=== PATIENT | female | born 1945 | race Caucasian/White ===

== ENCOUNTER 2017-09-03 11:13 | Inpatient (IN) | payer OTHER, MEDICARE ==
[~2017-09-03] VITALS: Ht 165.1 cm; Wt 57.2 kg
[~2017-09-03 11:13] MED LIST: ALPR2TAB3 PO; AMLO5TAB2 PO; CENTTAB PO; CLON0.1T PO; DOXY100C PO; FLUT50SP EACH NARE; FURO40TA PO; GABA400C5 PO; HYDR-2374 PO; LABE200T2 PO; LAMI200T PO; LEVO150T7 PO; MAGN65TA PO; PAXI20TA PO; POTA10CA PO; SAW500CA7 PO; WALKER WHEELS/F1 MIS
[2017-09-03 11:15] VITALS: BP 238/115; PULSE 96; RESP 16; TEMP 98.9; O2SAT 98
[2017-09-03 12:50] LABS: HEMATOCRIT 43.2 % (35.0-46.0); HEMOGLOBIN 14.7 GM/DL (11.6-15.3); MEAN CELL VOLUME 95.4 FL (80.0-100.0); MEAN CORPUSCULAR HEMOGLOBIN 32.5 PG (27.0-34.0); MEAN PLATELET VOLUME 10.7 FL (7.0-11.0); PLATELET COUNT 274 TH/MM3 (150-450); RED BLOOD COUNT 4.53 MIL/MM3 (4.00-5.30); RED CELL DISTRIBUTION WIDTH 12.3 % (11.6-17.2); WHITE BLOOD COUNT 12.2 TH/MM3 (4.0-11.0)
[2017-09-03 12:59] LABS: INTERNATIONAL NORMALIZED RATIO 1.1 RATIO; PROTHROMBIN TIME - PATIENT 11.1 SEC (9.8-11.6)
[2017-09-03 13:27] LABS: BANDS 2 % (0-6); BASOPHILS 2 % (0-2); LYMPHOCYTES 7 % (9-44); MONOCYTES 4 % (0-8); NEUTROPHIL # MANUAL DIFF 10.4 TH/MM3 (1.8-7.7); POLYS (SEG NEUTROPHILS) 83 % (16-70)
[2017-09-03 14:18] LABS: ALBUMIN 3.9 GM/DL (3.4-5.0); ALKALINE PHOSPHATASE 93 U/L (45-117); ALT (GPT) 23 U/L (10-53); AST (GOT) 20 U/L (15-37); BICARBONATE 22.1 MEQ/L (21.0-32.0); BLOOD UREA NITROGEN 22 MG/DL (7-18); CALCIUM 9.5 MG/DL (8.5-10.1); CHLORIDE 105 MEQ/L (98-107); CREATININE 0.92 MG/DL (0.50-1.00); GLOMERULAR FILTRATION RATE 60 ML/MIN (>89); GLUCOSE,RANDOM 102 MG/DL (74-106); SODIUM (NA) 139 MEQ/L (136-145); TOTAL BILIRUBIN ADULT 0.8 MG/DL (0.2-1.0); TOTAL PROTEIN 8.1 GM/DL (6.4-8.2)
[2017-09-03 14:32] VITALS: BP 196/110; PULSE 109; RESP 15; O2SAT 96
--- NOTE | 2017-09-03 14:34 | PD ---
HPI Chief Complaint: Medical Clearance Time Seen by Provider: 14:06 Travel History International Travel<30 days: No Contact w/Intl Traveler<30days: No Traveled to known affect area: No History of Present Illness HPI The patient was seen and examined in the presence of the nurse. This patient is brought in by her . For the last 5 days she's been feeling depressed. She's not been getting out of bed. She's not been eating. She's not been taking her medications. She denies feeling suicidal but admits to depression. He took her to [facility] emergency room yesterday where they did some tests that turned out normal. He was discharged and went home and saw the primary physician today. He is referred her to psychiatry and neurology and GI because she reported swallowing issues. The didn't want to wait for those referrals so he brought her here. Symptoms severity is moderate. No alleviating factors. No exacerbating factors. Denies any acute muscle group weakness. She complains of some generalized weakness. She is able to swallow but just doesn't feel like eating. She has no appetite. PFSH Past Medical History Anemia: Yes Arthritis: Yes Asthma: No Autoimmune Disease: No Blood Disorders: No Bipolar Disorder: Yes Anxiety: Yes Depression: Yes Heart Rhythm Problems: No Cancer: No Cardiovascular Problems: Yes High Cholesterol: No Chemotherapy: No Chest Pain: No Congestive Heart Failure: No COPD: No Cerebrovascular Accident: Yes (2011 & 2013) Diabetes: No Diminished Hearing: No Endocrine: Yes (HYPOTHYROID) Gastrointestinal Disorders: Yes (Constipation) GERD: Yes Genitourinary: Yes (BLADDER INCONTINENCE) Headaches: Yes Hiatal Hernia: No Hypertension: Yes Immune Disorder: No Kidney Stones: No Musculoskeletal: Yes (ARTHRITIS (SPINE, ARMS, KNEES)) Neurologic: Yes (MIGRAINES) Psychiatric: Yes ( PANIC D/O, PSDD, BIPOLAR) Reproductive: Yes (PROLAPSED UTERUS) Immunizations Current: Yes Migraines: Yes Pneumonia: Yes Radiation Therapy: No Renal Failure: No Seizures: Yes Sickle Cell Disease: No Sleep Apnea: No Thyroid Disease: Yes (HYPO) Ulcer: No Menopausal: Yes : 2 Para: 2 Past Surgical History Abdominal Surgery: Yes Body Medical Devices: RIGHT SHOULDER REPLACEMENT Ear Surgery: No Endocrine Surgery: No Eye Surgery: No Genitourinary Surgery: No Gynecologic Surgery: Yes Hysterectomy: Yes Insulin Pump: No Joint Replacement: Yes (RIGHT SHOULDER X 3) Neurologic Surgery: Yes (STROKE 2010) Oral Surgery: Yes (18 TEETH PULLED AND PLATE INSERT) Pacemaker: No Tonsillectomy: Yes Social History Alcohol Use: No Tobacco Use: No Substance Use: No Allergies-Medications (Allergen,Severity, Reaction): Coded Allergies: acetaminophen (Unverified Allergy, Severe, 04/02/17) aspirin (Unverified Allergy, Severe, 04/02/17) butorphanol (Unverified Allergy, Severe, 04/02/17) ciprofloxacin (Unverified Allergy, Severe, 04/02/17) erythromycin base (Unverified Allergy, Severe, 04/02/17) ferrous fumarate (Unverified Allergy, Severe, 04/02/17) ferrous sulfate (Unverified Allergy, Severe, 04/02/17) ferumoxytol (Unverified Allergy, Severe, 04/02/17) iron (Unverified Allergy, Severe, 04/02/17) levofloxacin (Unverified Allergy, Severe, 04/02/17) metoprolol (Unverified Allergy, Severe, 04/02/17) multivitamin infusion, adult no.4 with vitamin K (Unverified Allergy, Severe, 04/02/17) multivitamin with iron,other minerals (Unverified Allergy, Severe, 04/02/17 ) omeprazole (Unverified Allergy, Severe, 04/02/17) oxycodone (Unverified Allergy, Severe, 04/02/17) pentazocine (Unverified Allergy, Severe, 04/02/17) celecoxib (Unverified Allergy, Intermediate, ITCH, N&V, 04/02/17) amcinonide (Unverified Allergy, Unknown, 04/02/17) beclomethasone (Unverified Allergy, Unknown, 04/02/17) betamethasone (Unverified Allergy, Unknown, 04/02/17) buspirone (Unverified Allergy, Unknown, 04/02/17) caffeine (Unverified Allergy, Unknown, 04/02/17) desoximetasone (Unverified Allergy, Unknown, 04/02/17) dexamethasone (Unverified Allergy, Unknown, 04/02/17) diazepam (Unverified Allergy, Unknown, 04/02/17) divalproex sodium (Unverified Allergy, Unknown, 04/02/17) duloxetine (Unverified Allergy, Unknown, 04/02/17) escitalopram (Unverified Allergy, Unknown, 04/02/17) fludrocortisone (Unverified Allergy, Unknown, 04/02/17) flunisolide (Unverified Allergy, Unknown, 04/02/17) fluocinolone acetonide (Unverified Allergy, Unknown, 04/02/17) fluocinonide (Unverified Allergy, Unknown, 04/02/17) fluorometholone (Unverified Allergy, Unknown, 04/02/17) flurandrenolide (Unverified Allergy, Unknown, 04/02/17) fluticasone (Unverified Allergy, Unknown, 04/02/17) fluticasone furoate (Unverified Allergy, Unknown, 04/02/17) hydrocortisone (Unverified Allergy, Unknown, 04/02/17) methylprednisolone (Unverified Allergy, Unknown, 04/02/17) mometasone furoate (Unverified Allergy, Unknown, 04/02/17) naproxen (Unverified Allergy, Unknown, 04/02/17) ofloxacin (Unverified Allergy, Unknown, 04/02/17) prednisolone (Unverified Allergy, Unknown, 04/02/17) prednisone (Unverified Allergy, Unknown, 04/02/17) prochlorperazine (Unverified Allergy, Unknown, 04/02/17) triamcinolone (Unverified Allergy, Unknown, 04/02/17) *MDRO Multi-Drug Resistant Organism (Verified Adverse Reaction, Unknown, 07/03/16) MRSA screen positive 08/09/2015 Uncoded Allergies: Arthrotec (Allergy, Unknown, 04/09/13) Codeine Phosphate (Allergy, Unknown, 04/09/13) NSAIDS (Allergy, Unknown, 04/09/13) Reported Meds & Prescriptions Reported Meds & Active Scripts Active Reported Primidone 50 Mg Tab 50 Mg PO HS Titrating dose- week 1: 1/4 tab HS x 7 days week 2: 1/2 tab HS x 7 days week 3: 3/4 tab HS x 7 days then 1 tab HS Cromolyn Opth Drops 4% Soln 1 Drop EACH EYE QID Paroxetine (Paroxetine HCl) 20 Mg Tab 20 Mg PO BID Trazodone (Trazodone HCl) 100 Mg Tablet 100 Mg PO HS PRN Claritin (Loratadine) 10 Mg Cap 10 Mg PO DAILY Risperdal (Risperidone) 0.5 Mg Tab 0.5 Mg PO Q12HR Hydrocodone-Acetaminophen 5-325 mg Tab 1 Tab PO BID PRN Clonidine (Clonidine HCl) 0.1 Mg Tab 0.1 Mg PO BID Labetalol (Labetalol HCl) 200 Mg Tab 200 Mg PO BID Amlodipine (Amlodipine Besylate) 5 Mg Tab 5 Mg PO DAILY Levothyroxine (Levothyroxine Sodium) 150 Mcg Tab 150 Mcg PO DAILY Review of Systems General / Constitutional: No: Fever Eyes: No: Visual changes HENT: Positive: Headaches Cardiovascular: No: Chest Pain or Discomfort Respiratory: No: Shortness of Breath Gastrointestinal: No: Abdominal Pain Genitourinary: No: Dysuria Musculoskeletal: Positive: Weakness, No: Pain Skin: No Rash Neurologic: Positive: Weakness, Headache Psychiatric: Positive: Depression Endocrine: No: Polydipsia Hematologic/Lymphatic: No: Easy Bruising Physical Exam Narrative GENERAL: Thin elderly well-developed patient in no apparent distress. SKIN: Focused skin assessment reveals no rash and nodules. Skin is Warm and dry. HEAD: Atraumatic. Normocephalic. EYES: Pupils equal and round. No scleral icterus. No injection or drainage. ENT: No nasal bleeding or discharge. Mucous membranes pink and moist. NECK: Trachea midline. No JVD. CARDIOVASCULAR: Regular rate and rhythm. No murmur appreciated. RESPIRATORY: No accessory muscle use. Clear to auscultation. Breath sounds equal bilaterally. GASTROINTESTINAL: Abdomen soft, non-tender, nondistended. Hepatic and splenic margins not palpable. MUSCULOSKELETAL: No obvious deformities. No clubbing. No cyanosis. No edema. NEUROLOGICAL: Awake and alert. No obvious cranial nerve deficits. Motor grossly within normal limits. Normal speech. PSYCHIATRIC: Depressed mood and flat affect; insight and judgment reduced. Data Data Last Documented VS Vital Signs Date Time Temp Pulse Resp B/P (MAP) Pulse Ox O2 Delivery O2 Flow Rate FiO2 09/03/17 15:23 94 15 175/84 (114) 97 Room Air 09/03/17 11:15 98.9 Orders Orders Complete Blood Count With Diff (09/03/17 11:24) Comprehensive Metabolic Panel (09/03/17 11:24) Prothrombin Time / Inr (Pt) (09/03/17 11:24) Act Partial Throm Time (Ptt) (09/03/17 11:24) Thyroid Stimulating Hormone (09/03/17 11:24) Urinalysis - C+S If Indicated (09/03/17 14:17) Cath For Specimen (09/03/17 14:17) Ct Brain W/O Iv Contrast(Rout) (09/03/17 ) Psych Screen (09/03/17 14:17) Iv Access Insert/Monitor (09/03/17 14:17) Clonidine (Catapres) (09/03/17 14:45) Urine Culture (09/03/17 15:30) Sodium Chlor 0.9% 1000 Ml Inj (Ns 1000 M (09/03/17 16:15) Labs Laboratory Tests Test 09/03/17 11:48 09/03/17 15:30 White Blood Count 12.2 TH/MM3 Red Blood Count 4.53 MIL/MM3 Hemoglobin 14.7 GM/DL Hematocrit 43.2 % Mean Corpuscular Volume 95.4 FL Mean Corpuscular Hemoglobin 32.5 PG Mean Corpuscular Hemoglobin Concent 34.0 % Red Cell Distribution Width 12.3 % Platelet Count 274 TH/MM3 Mean Platelet Volume 10.7 FL CBC Comment AUTO DIFF Differential Total Cells Counted 100 Neutrophils % (Manual) 83 % Band Neutrophils % 2 % Lymphocytes % 7 % Monocytes % 4 % Eosinophils % 2 % Basophils % 2 % Neutrophils # (Manual) 10.4 TH/MM3 Differential Comment FINAL DIFF MANUAL Platelet Estimate NORMAL Platelet Morphology Comment NORMAL Red Cell Morphology Comment NORMAL Prothrombin Time 11.1 SEC Prothromb Time International Ratio 1.1 RATIO Activated Partial Thromboplast Time 26.4 SEC Blood Urea Nitrogen 22 MG/DL Creatinine 0.92 MG/DL Random Glucose 102 MG/DL Total Protein 8.1 GM/DL Albumin 3.9 GM/DL Calcium Level 9.5 MG/DL Alkaline Phosphatase 93 U/L Aspartate Amino Transf (AST/SGOT) 20 U/L Alanine Aminotransferase (ALT/SGPT) 23 U/L Total Bilirubin 0.8 MG/DL Sodium Level 139 MEQ/L Potassium Level 3.4 MEQ/L Chloride Level 105 MEQ/L Carbon Dioxide Level 22.1 MEQ/L Anion Gap 12 MEQ/L Estimat Glomerular Filtration Rate 60 ML/MIN Thyroid Stimulating Hormone 3rd Gen 2.070 uIU/ML Urine Color YELLOW Urine Turbidity CLEAR Urine pH 5.5 Urine Specific [place] 1.023 Urine Protein 100 mg/dL Urine Glucose (UA) NEG mg/dL Urine Ketones 40 mg/dL Urine Occult Blood NEG Urine Nitrite NEG Urine Bilirubin NEG Urine Urobilinogen 2.0 MG/DL Urine Leukocyte Esterase NEG Urine RBC 1 /hpf Urine WBC 1 /hpf Urine Squamous Epithelial Cells <1 /hpf Urine Bacteria RARE /hpf Urine Hyaline Casts 14 /lpf Urine Granular Casts 10 /lpf Urine Mucus FEW /lpf Microscopic Urinalysis Comment CATH-CULTURE IND MDM Medical Decision Making Medical Screen Exam Complete: Yes Emergency Medical Condition: Yes Medical Record Reviewed: Yes Differential Diagnosis Electrolyte abnormality, hypothyroidism, depression, adjustment disorder Narrative Course I have reviewed the patient's electronic medical record. IV placed CBC is normal Metabolic profile is normal TSH is normal Catheterized urine is clean Brain CT is ordered as she does complain of headache and has history of intracranial hemorrhage. There is no thunderclap onset. I don't see an acute neurologic deficit. Radiologist makes note of a tiny subcentimeter area that could possibly a be a little infarct that is new from the CT done 16 months ago. She is not having any acute neurologic deficit I've ordered psychiatric screening and patient is agreeable with this. Medical workup here is negative. I had her swallow a glass of water and she did so without any difficulty. It seems that depression is her main issue at this time. She is as medically stable as can be made and awaiting psychiatric evaluation Blood pressure significantly elevated on arrival but has come down to 175 systolic without treatment. Diagnosis Primary Impression: Depression Qualified Codes: F32.9 - Major depressive disorder, single episode, unspecified Additional Impression: Generalized weakness Eduardo Phelan MD Sep 03, 2017 14:34
[2017-09-03] MEDS ORDERED: cloNIDine HCL 0.2 MG TAB PO ONE (14:45)
[2017-09-03 15:23] VITALS: BP 175/84; PULSE 94; RESP 15; O2SAT 97
--- NOTE | 2017-09-03 15:36 | RADRPT ---
EXAM DATE/TIME: 09/03/2017 15:01 [facility] COMPARISON: CT BRAIN W/O CONTRAST, July 05, 2016, 15:36. INDICATIONS : Altered mental status, general weakness for five days. RADIATION DOSE: 34.85 CTDIvol (mGy) MEDICAL HISTORY : Hypertension. Cardiovascular disease Cerebrovascular disease. SURGICAL HISTORY : Tonsillectomy. Sinus sx. ENCOUNTER: Initial ACUITY: 4 - 6 days PAIN SCALE: 3/10 LOCATION: Bilateral cranial TECHNIQUE: Multiple contiguous axial images were obtained of the head. Using automated exposure control and adj ustment of the mA and/or kV according to patient size, radiation dose was kept as low as reasonably a chievable to obtain optimal diagnostic quality images. DICOM format image data is available electro nically for review and comparison. FINDINGS: CEREBRUM: The ventricles are normal for age. No evidence of midline shift, mass lesion, hemorrhage or acute in farction. No extra-axial fluid collections are seen. There is a new subcentimeter floor or 5 mm low density area in the knee of the left internal capsule, basal ganglia which may represent an area of l acunar infarct POSTERIOR FOSSA: The cerebellum and brainstem are intact. The 4th ventricle is midline. The cerebellopontine angle i s unremarkable. EXTRACRANIAL: The visualized portion of the orbits is intact. SKULL: The calvaria is intact. No evidence of skull fracture. CONCLUSION: Subcentimeter area of low density at the knee of the internal capsule left basal gang jose which may represent an interim lacunar infarct. Otherwise negative Ilia Bender MD on September 03, 2017 at 15:29 Board Certified Radiologist. This report was verified electronically.
[2017-09-03] MEDS ORDERED: CLAR10CA3 PO (15:50)
[2017-09-03] MEDS ORDERED: RISP0.5T25 PO (15:50)
[2017-09-03] MEDS ORDERED: CROM4SOL2 EACH EYE (15:50)
[2017-09-03] MEDS ORDERED: TRAZ100T10 PO (15:50)
[2017-09-03] MEDS ORDERED: HYDR-3516 PO (15:50)
[2017-09-03] MEDS ORDERED: PARO20TA2 PO (15:50)
[2017-09-03] MEDS ORDERED: PRIM50TA5 PO (15:50)
[2017-09-03 15:57] LABS: BACTERIA, URINE RARE /hpf; BLOOD, URINE NEG (NEG); GLUCOSE,URINE NEG (NEG); HYALINE CAST, URINE 14 /lpf (RARE); KETONE, URINE 40 mg/dL (NEG); MUCUS URINE FEW /lpf (OCC); NITRITE,URINE NEG (NEG); PH, URINE 5.5 (5.0-8.5); SQUAMOUS EPITHELIAL CELL URINE <1 /hpf (0-5); URINE COLOR YELLOW (YELLW/STRAW); URINE LEUKOCYTE ESTERASE NEG (NEG)
[2017-09-03 16:00] LABS: BILIRUBIN, URINE NEG (NEG)
[2017-09-03] MEDS ORDERED: SODIUM CHLOR 0.9% 1000 ML INJ 1,000 ML IV ONE (16:15)
[2017-09-03] MEDS ORDERED: ACETAMINOPHEN 325 MG TAB PO PRN (18:45)
[2017-09-03] MEDS ORDERED: MAGNESIUM HYDROXIDE SUSP 30 ML CUP PO PRN (18:45)
[2017-09-03] MEDS ORDERED: ALUMINUM/MAGNESIUM/SIMETH 30 ML CUP PO PRN (18:45)
[2017-09-03] MEDS ORDERED: traZODone HCL 100 MG TAB PO PRN (19:00)
--- NOTE | 2017-09-03 19:04 | HHI.HP ---
Provisional Diagnosis Admission Date [place] I. Major depression, severe Certification of Person's Competence To Provide Express and Informed Consent I have personally examined Lois Pearson , a person being served at [facility] on, Sep 03, 2017 18:52. Express and informed consent means consent voluntarily given in writing, by a competent person, after sufficient explanation and disclosure of the subject matter involved to enable the person to make a knowing and willful decision without any element of force, fraud, deceit, duress, or other form of constraint or coercion. This person is 18 years of age or older, is not now known to be incompetent to consent to treatment with a guardian advocate, and does not have a health care surrogate or proxy currently making medical treatment decisions. I have found this person to be one of the following: [] Competent to provide express and informed consent, as defined above, for voluntary admission to this facility and is competent to provide express and informed consent for treatment. He/she has the consistent capacity to make well reasoned, willful, and knowing decisions concerning his or her medical or mental health treatment. The person fully and consistently understands the purpose of the admission for examination/placement and is fully capable of personally exercising all rights [place] [X] Incompetent to provide express and informed consent to voluntary admission, and this is incompetent to provide express and informed consent to treatment. The person must be transferred to involuntary status and a petition for a guardian advocate filed with the Circuit Court. [] Refusing to provide express and informed consent to voluntary admission but is competent to provide express and informed consent for treatment. The person must be discharged or transferred to involuntary status. Form shall be completed within 24 hours of a person's arrival at the receiving facility and filed in the clinical record of each person: 1. Admitted on a voluntary basis 2. Permitted to provide express and informed consent to his/her own treatment 3. Allowed to transfer from involuntary to voluntary status 4. Prior to permitting a person to consent to his or her own treatment after having been previously found incompetent to consent to treatment. History of Present Illness Capacity: Lacks Capacity HPI 72-year-old female with history of multiple medical issues including thyroid disease, arthritis, chronic pain, panic attacks, etc. being Lew acted by this physician for inability to care for self. Patient is mostly nonverbal and has great difficulty with concentration and memory. Therefore her provided most of the history. The patient has been treated with Xanax and Lorcet for many many years, due to panic attacks and chronic pain. Between her doctor and herself, the patient has attempted to wean off the benzodiazepine and narcotic medications. reports this may have been well intentioned but it has caused a significant spiral downward in the patient's functionality. She now experiences depressed mood, anhedonia, diminished energy, social withdrawal, loss of appetite, sleep disturbance, poverty of speech, increased anxiety, and noncompliance with her nonpsychiatric medications. Patient has been diagnosed with urinary tract infection and has not been drinking fluids at home or taking her Synthroid. Review of Systems ROS Limitations: Clinical Condition Psychiatric: COMPLAINS OF: Confusion, Depression Except as stated in HPI: all other systems reviewed are Neg Past Psych History Psychological trauma history No known psychological trauma. Patient is a poor historian. Violence risk - others (6 mos) Minimal Violence risk - self (6 mos) Danger to patient is very high due to risk for withdrawal seizures, infection, exacerbation of thyroid disease, high blood pressure, etc. Substance Abuse History Drugs/Alcohol past 12 months Denied. Patient and both report she has been responsible in taking her Xanax and opiates as prescribed for many years. Past Family Social History Coded Allergies: acetaminophen (Unverified Allergy, Severe, 04/02/17) aspirin (Unverified Allergy, Severe, 04/02/17) butorphanol (Unverified Allergy, Severe, 04/02/17) ciprofloxacin (Unverified Allergy, Severe, 04/02/17) erythromycin base (Unverified Allergy, Severe, 04/02/17) ferrous fumarate (Unverified Allergy, Severe, 04/02/17) ferrous sulfate (Unverified Allergy, Severe, 04/02/17) ferumoxytol (Unverified Allergy, Severe, 04/02/17) iron (Unverified Allergy, Severe, 04/02/17) levofloxacin (Unverified Allergy, Severe, 04/02/17) metoprolol (Unverified Allergy, Severe, 04/02/17) multivitamin infusion, adult no.4 with vitamin K (Unverified Allergy, Severe, 04/02/17) multivitamin with iron,other minerals (Unverified Allergy, Severe, 04/02/17 ) omeprazole (Unverified Allergy, Severe, 04/02/17) oxycodone (Unverified Allergy, Severe, 04/02/17) pentazocine (Unverified Allergy, Severe, 04/02/17) celecoxib (Unverified Allergy, Intermediate, ITCH, N&V, 04/02/17) amcinonide (Unverified Allergy, Unknown, 04/02/17) beclomethasone (Unverified Allergy, Unknown, 04/02/17) betamethasone (Unverified Allergy, Unknown, 04/02/17) buspirone (Unverified Allergy, Unknown, 04/02/17) caffeine (Unverified Allergy, Unknown, 04/02/17) desoximetasone (Unverified Allergy, Unknown, 04/02/17) dexamethasone (Unverified Allergy, Unknown, 04/02/17) diazepam (Unverified Allergy, Unknown, 04/02/17) divalproex sodium (Unverified Allergy, Unknown, 04/02/17) duloxetine (Unverified Allergy, Unknown, 04/02/17) escitalopram (Unverified Allergy, Unknown, 04/02/17) fludrocortisone (Unverified Allergy, Unknown, 04/02/17) flunisolide (Unverified Allergy, Unknown, 04/02/17) fluocinolone acetonide (Unverified Allergy, Unknown, 04/02/17) fluocinonide (Unverified Allergy, Unknown, 04/02/17) fluorometholone (Unverified Allergy, Unknown, 04/02/17) flurandrenolide (Unverified Allergy, Unknown, 04/02/17) fluticasone (Unverified Allergy, Unknown, 04/02/17) fluticasone furoate (Unverified Allergy, Unknown, 04/02/17) hydrocortisone (Unverified Allergy, Unknown, 04/02/17) methylprednisolone (Unverified Allergy, Unknown, 04/02/17) mometasone furoate (Unverified Allergy, Unknown, 04/02/17) naproxen (Unverified Allergy, Unknown, 04/02/17) ofloxacin (Unverified Allergy, Unknown, 04/02/17) prednisolone (Unverified Allergy, Unknown, 04/02/17) prednisone (Unverified Allergy, Unknown, 04/02/17) prochlorperazine (Unverified Allergy, Unknown, 04/02/17) triamcinolone (Unverified Allergy, Unknown, 04/02/17) *MDRO Multi-Drug Resistant Organism (Verified Adverse Reaction, Unknown, 07/03/16) MRSA screen positive 08/09/2015 Uncoded Allergies: Arthrotec (Allergy, Unknown, 04/09/13) Codeine Phosphate (Allergy, Unknown, 04/09/13) NSAIDS (Allergy, Unknown, 04/09/13) Reported Medications Primidone (Primidone) 50 Mg Tab, 50 MG PO HS for Control Seizures, #60 TAB 0 Refills Titrating dose- week 1: 1/4 tab HS x 7 days week 2: 1/2 tab HS x 7 days week 3: 3/4 tab HS x 7 days then 1 tab HS 09/03/17 Cromolyn Opth Drops (Cromolyn Opth Drops) 4% Soln, 1 DROP EACH EYE QID, #1 BOTTLE 0 Refills 09/03/17 Paroxetine (Paroxetine) 20 Mg Tab, 20 MG PO BID, #30 TAB 0 Refills 09/03/17 Trazodone (Trazodone) 100 Mg Tablet, 100 MG PO HS Y for INSOMNIA, #30 TAB 0 Refills 09/03/17 Loratadine (Claritin) 10 Mg Cap, 10 MG PO DAILY for Allergy Management, CAP 0 Refills 09/03/17 Risperidone (Risperdal) 0.5 Mg Tab, 0.5 MG PO Q12HR, #60 TAB 0 Refills 09/03/17 Hydrocodone-Acetaminophen (Hydrocodone-Acetaminophen) 5-325 mg Tab, 1 TAB PO BID Y for PAIN, TAB 0 Refills 09/03/17 Clonidine (Clonidine) 0.1 Mg Tab, 0.1 MG PO BID for Blood Pressure Management, # 60 TAB 0 Refills 07/03/16 Labetalol (Labetalol) 200 Mg Tab, 200 MG PO BID for Blood Pressure Management, TAB 0 Refills 07/03/16 Amlodipine (Amlodipine) 5 Mg Tab, 5 MG PO DAILY for Blood Pressure Management, # 30 TAB 0 Refills 07/03/16 Levothyroxine (Levothyroxine) 150 Mcg Tab, 150 MCG PO DAILY for Thyroid, #30 TAB 0 Refills 07/03/16 Discontinued Reported Medications Doxycycline Hyclate (Doxycycline Hyclate) 100 Mg Cap, 100 MG PO BID for Infection, CAP 0 Refills 07/03/16 Lamotrigine (Lamictal) 200 Mg Tab, 200 MG PO BID for Control Seizures, #60 TAB 0 Refills 07/03/16 Alprazolam (Alprazolam) 2 Mg Tab, 2 MG PO Q8H Y for ANXIETY, TAB 0 Refills 07/03/16 Furosemide (Furosemide) 40 Mg Tab, 40 MG PO BID, #60 TAB 0 Refills 07/03/16 Potassium Chloride ER (Potassium Chloride ER) 10 Meq Cap, 10 MEQ PO BID for Electrolyte Replacement, #60 CAP 0 Refills 07/03/16 Fluticasone Nasal Marlin (Fluticasone Nasal Marlin) 50 Mcg/Act Naspr, 50 MCG EACH NARE BID for Allergy Management, #1 BOTTLE 0 Refills 50 mcg/spray 07/03/16 Gabapentin (Gabapentin) 400 Mg Cap, 400 CAP PO HS, #30 CAP 0 Refills 07/03/16 Current Medications Medications (Trade) Dose Ordered Sig/Jaxon Route Start Time Stop Time Status Last Admin (Tylenol) 650 mg Q4H PRN PO 09/03/17 18:45 UNV (Milk Of Magnesia Liq) 30 ml DAILY PRN PO 09/03/17 18:45 UNV (Mag-Al Plus Susp Liq) 30 ml Q6H PRN PO 09/03/17 18:45 UNV (Norvasc) 5 mg DAILY PO 09/04/17 09:00 UNV (Catapres) 0.1 mg BID PO 09/03/17 21:00 UNV (Trandate) 200 mg BID PO 09/03/17 21:00 UNV (Synthroid) 150 mcg DAILY PO 09/04/17 09:00 UNV (Claritin) 10 mg DAILY PO 09/04/17 09:00 UNV (Paxil) 20 mg BID PO 09/03/17 21:00 UNV (Mysoline) 50 mg HS PO 09/03/17 21:00 UNV Non-Formulary Medication 1 drop QID EACH EYE 09/03/17 21:00 UNV Non-Formulary Medication 100 mg HS PRN PO 09/03/17 19:00 UNV Family Psych History Positive for depression and anxiety. Social History Lives with her of many years. He is entirely supportive of her and would like to see her back on the Xanax and hydrocodone/acetaminophen as previously prescribed. He is afraid she will in the next 2 weeks if she cannot be adequately treated. Both patient and are retired. Patient has had multiple surgeries for arthritis like condition. Patient's Strengths (min. 2) Supportive and has access to healthcare. Physical Exam GENERAL: SKIN: Warm and dry. HEAD: Normocephalic. EYES: No scleral icterus. No injection or drainage. NECK: Supple, trachea midline. No JVD or lymphadenopathy. CARDIOVASCULAR: Regular rate and rhythm without murmurs, gallops, or rubs. RESPIRATORY: Breath sounds equal bilaterally. No accessory muscle use. GASTROINTESTINAL: Abdomen soft, non-tender, nondistended. MUSCULOSKELETAL: No cyanosis, or edema. BACK: Nontender without obvious deformity. No CVA tenderness. Vital Signs Vital Signs Date Time Temp Pulse Resp B/P (MAP) Pulse Ox O2 Delivery O2 Flow Rate FiO2 09/03/17 15:23 94 15 175/84 (114) 97 Room Air 09/03/17 11:15 98.9 I/O 09/03/17 09/03/17 09/04/17 08:00 16:00 00:00 Intake Total 1000 ml Balance 1000 ml Lab Results Test 09/03/17 11:48 09/03/17 15:30 White Blood Count 12.2 TH/MM3 Red Blood Count 4.53 MIL/MM3 Hemoglobin 14.7 GM/DL Hematocrit 43.2 % Mean Corpuscular Volume 95.4 FL Mean Corpuscular Hemoglobin 32.5 PG Mean Corpuscular Hemoglobin Concent 34.0 % Red Cell Distribution Width 12.3 % Platelet Count 274 TH/MM3 Mean Platelet Volume 10.7 FL CBC Comment AUTO DIFF Differential Total Cells Counted 100 Neutrophils % (Manual) 83 % Band Neutrophils % 2 % Lymphocytes % 7 % Monocytes % 4 % Eosinophils % 2 % Basophils % 2 % Neutrophils # (Manual) 10.4 TH/MM3 Differential Comment FINAL DIFF MANUAL Platelet Estimate NORMAL Platelet Morphology Comment NORMAL Red Cell Morphology Comment NORMAL Prothrombin Time 11.1 SEC Prothromb Time International Ratio 1.1 RATIO Activated Partial Thromboplast Time 26.4 SEC Blood Urea Nitrogen 22 MG/DL Creatinine 0.92 MG/DL Random Glucose 102 MG/DL Total Protein 8.1 GM/DL Albumin 3.9 GM/DL Calcium Level 9.5 MG/DL Alkaline Phosphatase 93 U/L Aspartate Amino Transf (AST/SGOT) 20 U/L Alanine Aminotransferase (ALT/SGPT) 23 U/L Total Bilirubin 0.8 MG/DL Sodium Level 139 MEQ/L Potassium Level 3.4 MEQ/L Chloride Level 105 MEQ/L Carbon Dioxide Level 22.1 MEQ/L Anion Gap 12 MEQ/L Estimat Glomerular Filtration Rate 60 ML/MIN Thyroid Stimulating Hormone 3rd Gen 2.070 uIU/ML Urine Color YELLOW Urine Turbidity CLEAR Urine pH 5.5 Urine Specific [place] 1.023 Urine Protein 100 mg/dL Urine Glucose (UA) NEG mg/dL Urine Ketones 40 mg/dL Urine Occult Blood NEG Urine Nitrite NEG Urine Bilirubin NEG Urine Urobilinogen 2.0 MG/DL Urine Leukocyte Esterase NEG Urine RBC 1 /hpf Urine WBC 1 /hpf Urine Squamous Epithelial Cells <1 /hpf Urine Bacteria RARE /hpf Urine Hyaline Casts 14 /lpf Urine Granular Casts 10 /lpf Urine Mucus FEW /lpf Microscopic Urinalysis Comment CATH-CULTURE IND Date/Time Source Procedure Growth Status 09/03/17 15:30 Urine Catheterized Urine Urine Culture Pending Received Mental Status Examination Appearance: Disheveled Consciousness: Alert Orientation: Person Motor Activity: Abnormal gait Speech: Hesitant, Slow, Other Language: Other Fund of Knowledge: Inadequate Attention and Concentration: Inadequate Memory: Impaired Mood: Sad, Anxious Affect: Sad, Flat, Anxious Thought Process & Associations: Intact Thought Content: Other Hallucination Type: None Delusion Type: None Suicidal Ideation: Yes Suicidal Plan: No Suicidal Intention: No Homicidal Ideation: No Homicidal Plan: No Homicidal Intention: No Insight: Poor Judgment: Poor Assessment & Plan Problem List: (1) Severe recurrent major depression without psychotic features ICD Codes: F33.2 - Major depressive disorder, recurrent severe without psychotic features Assessment & Plan Estimated LOS: days. 72-year-old female obviously depressed, probably in withdrawal from benzodiazepines and narcotic restriction, not eating well, not drinking well, noncompliant with her medicines, not caring for her multiple medical problems and suffering from a urinary tract infection. Patient is felt to be at high risk for self neglect and therefore being admitted for further evaluation and treatment. This physician has placed the patient under a Lew act and does not feel she is competent to make medical decisions. Therefore the civil commitment process has been started and her is willing to make medical decisions for her. This physician has ordered a CBC and comprehensive metabolic panel, including hemoglobin A1c and lipids. This is to determine the status of the patient's current infection as well as any metabolic parameters which might have been adversely affected by her depression and lack of compliance with medicines. In addition, this physician has ordered thyroid stimulating hormone, vitamin B-12 and vitamin D levels, to determine if deficiencies in these areas is causing or contributing to the patient's depression or the result of the patient's depression and her lack of self-care. The hospitalist consult was placed as the patient has multiple medical issues that need to be evaluated and possibly treated. An EKG has been ordered to determine the patient's cardiac conduction status prior to substantially altering the patient's medications, including psychotropic medicines, which might adversely affect the electrical system of her heart. For this reason, this physician has also held the patient's Paxil. This physician spoke with the patient's nurse, Daisy, regarding the patient's behavior in the emergency department including the minimal amounts of water and medication the patient is taking. Finally, case management will also be involved to assist with further information gathering and disposition planning. Todd Zapien MD Sep 03, 2017 19:04
[2017-09-03 19:19] VITALS: BP 154/71; PULSE 101; RESP 18; O2SAT 98
[2017-09-03 20:59] VITALS: BP 194/88; PULSE 88; RESP 16; TEMP 97.5; O2SAT 93
[2017-09-03] MEDS ORDERED: CROMOLYN SODIUM 4% EACH EYE SCH (21:00)
[2017-09-03] MEDS: PRIMIDONE 50 MG TAB PO SCH (21:00)
[2017-09-03] MEDS: cloNIDine HCL 0.1 MG TAB PO SCH (21:00)
[2017-09-03] MEDS: LABETALOL HCL 200 MG TAB PO SCH (21:00)
[2017-09-03] MEDS: PARoxetine HCL 20 MG TAB PO SCH (21:00)
[2017-09-03] MEDS: ACETAMINOPHEN/HYDROcodone 325 MG/7.5 MG TAB PO SCH (22:00)
[2017-09-03] MEDS: ALPRAZolam 1 MG TAB PO SCH (23:04)
[2017-09-04 00:25] VITALS: BP 146/65; O2SAT 94
[2017-09-04 05:06] VITALS: BP 171/74; PULSE 100; RESP 16; TEMP 96.2; O2SAT 93
[2017-09-04] MEDS: ACETAMINOPHEN/HYDROcodone 325 MG/7.5 MG TAB PO SCH ×3 (05:59→22:00)
[2017-09-04] MEDS: LEVOTHYROXINE SODIUM 150 MCG TAB PO SCH (06:00)
[2017-09-04] MEDS: ALPRAZolam 1 MG TAB PO SCH ×3 (06:00→22:00)
[2017-09-04] MEDS: LABETALOL HCL 200 MG TAB PO SCH ×2 (06:37→20:21)
[2017-09-04] MEDS: cloNIDine HCL 0.1 MG TAB PO SCH ×2 (06:37→20:21)
--- NOTE | 2017-09-04 07:59 | PD.CONS ---
[facility] Request[facility] By Reason for Consult Medical management Primary Care Physician Unknown Diagnoses: (1) HTN (hypertension) (2) CVA (cerebral vascular accident) (3) Hypothyroidism (4) Arthritis (5) Depression with anxiety (6) UTI (lower urinary tract infection) History of Present Illness 72-year-old female with past medical history significant for HTN, CVA 2, ICH, hypothyroidism, arthritis, epilepsy, anxiety, and depression who was brought to emergency department on 09/03/17 by her . Review of ED documentation, patient apparently had worsening symptoms of depression to the point where she was not getting out of bed, eating, or taking medications for the past 5 days. She did visit [facility] emergency room however was discharged home to follow-up with her PCP which she did. Patient's PCP referred her to psychiatry, neurology , and GI due to swallowing issues. did not want to wait for those referrals therefore brought patient into the emergency department for evaluation. She was cleared by emergency room physician and admitted to inpatient medical psychiatry unit. At the time of my visit patient is in medical psychiatry unit resting comfortably in her bed sitting up. She is alert and oriented 3, flat affect. I review EMR medical/surgical history and also review and confirm medical history with patient. She tells me that her new psychiatrist recently weaned her off her anxiety medication and put her on something different. She noticed that shortly after this her anxiety has been constant. She reports not taking any medications for the past 5 days. Patient also tells me that she will experience trouble swallowing when she is having anxiety and reports feeling as if her throat is tightening up. She denies any fevers, chills, nausea, vomiting, diarrhea and abdominal pain. She also denies any cough, chest pains, shortness of breath, headaches, or visual changes. I asked patient if she has a history of seizures and she reports she doesn't fact have a history of seizures but her last seizure was over 3 years ago. Review of Systems Psychiatric: COMPLAINS OF: Anxiety Except as stated in HPI: all other systems reviewed are Neg Past Family Social History Allergies: Coded Allergies: acetaminophen (Unverified Allergy, Severe, 04/02/17) aspirin (Unverified Allergy, Severe, 04/02/17) butorphanol (Unverified Allergy, Severe, 04/02/17) ciprofloxacin (Unverified Allergy, Severe, 04/02/17) erythromycin base (Unverified Allergy, Severe, 04/02/17) ferrous fumarate (Unverified Allergy, Severe, 04/02/17) ferrous sulfate (Unverified Allergy, Severe, 04/02/17) ferumoxytol (Unverified Allergy, Severe, 04/02/17) iron (Unverified Allergy, Severe, 04/02/17) levofloxacin (Unverified Allergy, Severe, 04/02/17) metoprolol (Unverified Allergy, Severe, 04/02/17) multivitamin infusion, adult no.4 with vitamin K (Unverified Allergy, Severe, 04/02/17) multivitamin with iron,other minerals (Unverified Allergy, Severe, 04/02/17 ) omeprazole (Unverified Allergy, Severe, 04/02/17) oxycodone (Unverified Allergy, Severe, 04/02/17) pentazocine (Unverified Allergy, Severe, 04/02/17) celecoxib (Unverified Allergy, Intermediate, ITCH, N&V, 04/02/17) amcinonide (Unverified Allergy, Unknown, 04/02/17) beclomethasone (Unverified Allergy, Unknown, 04/02/17) betamethasone (Unverified Allergy, Unknown, 04/02/17) buspirone (Unverified Allergy, Unknown, 04/02/17) caffeine (Unverified Allergy, Unknown, 04/02/17) desoximetasone (Unverified Allergy, Unknown, 04/02/17) dexamethasone (Unverified Allergy, Unknown, 04/02/17) diazepam (Unverified Allergy, Unknown, 04/02/17) divalproex sodium (Unverified Allergy, Unknown, 04/02/17) duloxetine (Unverified Allergy, Unknown, 04/02/17) escitalopram (Unverified Allergy, Unknown, 04/02/17) fludrocortisone (Unverified Allergy, Unknown, 04/02/17) flunisolide (Unverified Allergy, Unknown, 04/02/17) fluocinolone acetonide (Unverified Allergy, Unknown, 04/02/17) fluocinonide (Unverified Allergy, Unknown, 04/02/17) fluorometholone (Unverified Allergy, Unknown, 04/02/17) flurandrenolide (Unverified Allergy, Unknown, 04/02/17) fluticasone (Unverified Allergy, Unknown, 04/02/17) fluticasone furoate (Unverified Allergy, Unknown, 04/02/17) hydrocortisone (Unverified Allergy, Unknown, 04/02/17) methylprednisolone (Unverified Allergy, Unknown, 04/02/17) mometasone furoate (Unverified Allergy, Unknown, 04/02/17) naproxen (Unverified Allergy, Unknown, 04/02/17) ofloxacin (Unverified Allergy, Unknown, 04/02/17) prednisolone (Unverified Allergy, Unknown, 04/02/17) prednisone (Unverified Allergy, Unknown, 04/02/17) prochlorperazine (Unverified Allergy, Unknown, 04/02/17) triamcinolone (Unverified Allergy, Unknown, 04/02/17) Uncoded Allergies: Arthrotec (Allergy, Unknown, 04/09/13) Codeine Phosphate (Allergy, Unknown, 04/09/13) NSAIDS (Allergy, Unknown, 04/09/13) Past Medical History Hypertension Hypothyroidism CVA 2 Subdural hematoma June 2016 Arthritis Epilepsy Anxiety Depression Past Surgical History Appendectomy Right shoulder surgery 3 Right orbital reconstruction with mesh due to fracture 06/2016 Reported Medications Reported Meds & Active Scripts Active Reported Primidone 50 Mg Tab 50 Mg PO HS Titrating dose- week 1: 1/ tab HS x 7 days week 2: 1/2 tab HS x 7 days week 3: 3/4 tab HS x 7 days then 1 tab HS Cromolyn Opth Drops 4% Soln 1 Drop EACH EYE QID Paroxetine (Paroxetine HCl) 20 Mg Tab 20 Mg PO BID Trazodone (Trazodone HCl) 100 Mg Tablet 100 Mg PO HS PRN Claritin (Loratadine) 10 Mg Cap 10 Mg PO DAILY Risperdal (Risperidone) 0.5 Mg Tab 0.5 Mg PO Q12HR Hydrocodone-Acetaminophen 5-325 mg Tab 1 Tab PO BID PRN Clonidine (Clonidine HCl) 0.1 Mg Tab 0.1 Mg PO BID Labetalol (Labetalol HCl) 200 Mg Tab 200 Mg PO BID Amlodipine (Amlodipine Besylate) 5 Mg Tab 5 Mg PO DAILY Levothyroxine (Levothyroxine Sodium) 150 Mcg Tab 150 Mcg PO DAILY Active Ordered Medications Current Medications Medications (Trade) Dose Ordered Sig/Jaxon Route Start Time Stop Time Status Last Admin (Tylenol) 650 mg Q4H PRN PO 09/03/17 18:45 (Milk Of Magnesia Liq) 30 ml DAILY PRN PO 09/03/17 18:45 (Mag-Al Plus Susp Liq) 30 ml Q6H PRN PO 09/03/17 18:45 (Norvasc) 5 mg DAILY PO 09/04/17 09:00 (Catapres) 0.1 mg BID PO 09/03/17 21:00 09/04/17 06:37 (Trandate) 200 mg BID PO 09/03/17 21:00 09/04/17 06:37 (Synthroid) 150 mcg DAILY@0600 PO 09/04/17 06:00 09/04/17 06:00 (Claritin) 10 mg DAILY PO 09/04/17 09:00 (Paxil) 20 mg BID PO 09/03/17 21:00 (Mysoline) 50 mg HS PO 09/03/17 21:00 Patient Own Medication PT OWN MED: Cromo... QID EACH EYE 09/03/17 21:00 Future Hold (Desyrel) 100 mg HS PRN PO 09/03/17 19:00 (Xanax) 1 mg Q8HR PO 09/03/17 22:00 09/04/17 06:00 ([place] 7.5-325 Mg) 1 tab Q8HR PO 09/03/17 22:00 09/04/17 05:59 (Pneumovax-23 Inj) 25 mcg ONCE ONCE IM 09/05/17 10:00 09/05/17 10:01 (Flu (Quadrivalent) Vaccine Inj) 0.5 ml ONCE ONCE IM 09/05/17 10:00 09/05/17 10:01 Family History Mother: Cardiac issues with a history of quadruple bypass, diabetic Father: Emphysema (smoker) Social History Tobacco: Denies Alcohol: Denies Illicit drug use: Denies Lives at home with her Son and daughter both [id number] Physical Exam Vital Signs Vital Signs Date Time Temp Pulse Resp B/P (MAP) Pulse Ox O2 Delivery O2 Flow Rate FiO2 09/04/17 05:06 96.2 100 16 171/74 (106) 93 09/04/17 00:25 146/65 (92) 94 09/03/17 20:59 97.5 88 16 194/88 (123) 93 09/03/17 19:26 09/03/17 19:19 101 18 154/71 (98) 98 Room Air 09/03/17 15:23 94 15 175/84 (114) 97 Room Air 09/03/17 14:32 15 09/03/17 14:32 109 15 196/110 (138) 96 Room Air 09/03/17 11:15 98.9 96 16 238/115 (156) 98 Physical Exam GENERAL: This is a well-nourished, well-developed patient, in no apparent distress. SKIN: No rashes, ecchymoses or lesions. Cool and dry. HEAD: Atraumatic. Normocephalic. No temporal or scalp tenderness. EYES: Pupils equal round and reactive. Extraocular motions intact. No scleral icterus. No injection or drainage. ENT: Nose without bleeding, purulent drainage. Throat without erythema, or exudate. Uvula midline. Airway patent. Dry lips. NECK: Trachea midline. No JVD. Supple, nontender. CARDIOVASCULAR: Regular rate and rhythm without murmurs, gallops, or rubs. RESPIRATORY: Clear to auscultation. Breath sounds equal bilaterally. No wheezes , rales, or rhonchi. GASTROINTESTINAL: Abdomen soft, non-tender, nondistended. No palpable masses. No guarding. MUSCULOSKELETAL: Extremities without clubbing, cyanosis, or edema. No joint tenderness, effusion, or edema noted. No calf tenderness. NEUROLOGICAL: Awake and alert oriented x3. Cranial nerves II through XII intact. Motor and sensory grossly within normal limits. 4/4 muscle strength in all muscle groups. Speech is slow but clear, with noted delay in response. There is not facial droop noted. Flat affect. Laboratory Laboratory Tests Test 09/03/17 11:48 09/03/17 15:30 White Blood Count 12.2 Red Blood Count 4.53 Hemoglobin 14.7 Hematocrit 43.2 Mean Corpuscular Volume 95.4 Mean Corpuscular Hemoglobin 32.5 Mean Corpuscular Hemoglobin Concent 34.0 Red Cell Distribution Width 12.3 Platelet Count 274 Mean Platelet Volume 10.7 CBC Comment AUTO DIFF Differential Total Cells Counted 100 Neutrophils % (Manual) 83 Band Neutrophils % 2 Lymphocytes % 7 Monocytes % 4 Eosinophils % 2 Basophils % 2 Neutrophils # (Manual) 10.4 Differential Comment FINAL DIFF MANUAL Platelet Estimate NORMAL Platelet Morphology Comment NORMAL Red Cell Morphology Comment NORMAL Prothrombin Time 11.1 Prothromb Time International Ratio 1.1 Activated Partial Thromboplast Time 26.4 Blood Urea Nitrogen 22 Creatinine 0.92 Random Glucose 102 Total Protein 8.1 Albumin 3.9 Calcium Level 9.5 Alkaline Phosphatase 93 Aspartate Amino Transf (AST/SGOT) 20 Alanine Aminotransferase (ALT/SGPT) 23 Total Bilirubin 0.8 Sodium Level 139 Potassium Level 3.4 Chloride Level 105 Carbon Dioxide Level 22.1 Anion Gap 12 Estimat Glomerular Filtration Rate 60 Thyroid Stimulating Hormone 3rd Gen 2.070 Urine Color YELLOW Urine Turbidity CLEAR Urine pH 5.5 Urine Specific [place] 1.023 Urine Protein 100 Urine Glucose (UA) NEG Urine Ketones 40 Urine Occult Blood NEG Urine Nitrite NEG Urine Bilirubin NEG Urine Urobilinogen 2.0 Urine Leukocyte Esterase NEG Urine RBC 1 Urine WBC 1 Urine Squamous Epithelial Cells <1 Urine Bacteria RARE Urine Hyaline Casts 14 Urine Granular Casts 10 Urine Mucus FEW Microscopic Urinalysis Comment CATH-CULTURE IND Date/Time Source Procedure Growth Status 09/03/17 15:30 Urine Catheterized Urine Urine Culture Pending Received Result Diagram: 09/03/17 1148 09/03/17 1148 Imaging Last Impressions Head CT 09/03/17 0000 Signed Impressions: Service Date/Time: Sunday, September 03, 2017 15:01 - CONCLUSION: Subcentimeter area of low density at the knee of the internal capsule left basal ganglia which may represent an interim lacunar infarct. Otherwise negative Ilia Bender MD Assessment and Plan Assessment and Plan 72-year-old female with past medical history significant for HTN, CVA 2, ICH, hypothyroidism, arthritis, epilepsy, anxiety, and depression who was brought to emergency department on 09/03/17 by her . Anxiety and depression -Management per primary team CVA history - CT scan done 09/03/17 reviewed, subcentimeter area of low density at the knee of the internal capsule left basal ganglia which may represent an interim lacunar infarct. Otherwise negative CT. - Discussed CT with , will order brain MRI to further evaluate abnormal CT. - Patient with generalized weakness bilaterally, no noted facial droop. - No ASA due to allergy - Lipids and A1c ordered HTN, uncontrolled - Blood pressure this morning 171/74 - Continue patient's labetalol 200 mg twice a day, Norvasc 5 mg daily, clonidine 0.1 mg twice a day - BP likely elevated to noncompliance for the past 5 days, trend BP and adjust accordingly. - Discussed with patient the importance of blood pressure control given her history of CVAs, voiced understanding. Epilepsy - Patient reports last seizure 3 years ago - Resume home dose of Primidone 50 mg at bedtime - Monitor for seizure activity closely due to recent taper from benzodiazepines. (Patient started on Xanax every 8 hours by psychiatry) Arthritis/chronic pain - At the time of my examination patient is not voicing any complaints of pain or discomfort. - [place]wn 7.5 mg every 8 hours ordered by psychiatry Hypothyroidism - Resume levothyroxine 150 MCG's daily - TSH checked 2.07 Abnormal UA - UA collected in ED reviewed, rare bacteria, protein, ketones. Urine sent for culture and sensitivity, still pending - Patient denies any urinary symptoms, afebrile, CBC reviewed with mild leukocytosis - Repeat lab work this morning, await urine culture and sensitivity results. DVT prophylaxis - Early ambulation Patient discussed with nurse. Problem Qualifiers (1) HTN (hypertension): Qualified Codes: I10 - Essential (primary) hypertension (2) CVA (cerebral vascular accident): Qualified Codes: I63.9 - Cerebral infarction, unspecified (3) Hypothyroidism: Qualified Codes: E03.9 - Hypothyroidism, unspecified Elia Sumner Sep 04, 2017 07:59
[2017-09-04] MEDS: LORATADINE 10 MG TAB PO SCH (09:00)
[2017-09-04] MEDS: amLODIPine BESYLATE 5 MG TAB PO SCH (09:07)
[2017-09-04] MEDS: PARoxetine HCL 20 MG TAB PO SCH ×2 (09:07→20:21)
--- NOTE | 2017-09-04 09:41 | HHI.PYPN ---
Subjective Remarks Patient is a 72-year-old woman, , domicile with , unemployed, past psychiatric history of anxiety disorder, bipolar disorder, previous psychiatric admissions, no prior suicide attempts with a past medical history significant for hypothyroidism, GERD, prior CVAs in 2011 2013, hypertension, seizure disorder was brought in by has been due to worsening depression, not eating, noncompliance with medications, which recently visits with primary care physician referral to subspecialties but did not want to wait in by her to the hospital. Upon initial psychiatric evaluation patient is be nonverbal history mostly taking by but with worsening depression and admitted to the inpatient psychiatry unit for further evaluation and management stabilization. Patient was found lying in hospital bed, cooperative. Patient noted to have significant psychomotor retardation, no speech latency, reported that she is feeling anxious about dying stating that she has having thoughts that her arm control but unable to elaborate specific thoughts. Patient states that she has been sleeping recently and states that trazodone has not helped and that only Xanax has helped. As per chart is straight patient has been on Xanax and opioid for some time and recently and attempted to taper off these medications felt has been affecting her current mood. Patient was feeling depressed, denies any suicidal ideations but is endorsing feeling helpless and hopeless. Patient states "I feel like dying" . Patient denies any perceptual services or delusions. When asked about her compliance with medications she states that "because he gets stuck in my throat " which even reporting has been having since age 14 states that she has been able to medications in the past because she is able to "distract myself". Review of Systems Except as stated in HPI: all other systems reviewed are Neg Mental Status Examination Appearance: Disheveled Consciousness: Alert Orientation: Person Motor Activity: Abnormal gait Speech: Hesitant, Slow, Other Language: Other Fund of Knowledge: Inadequate Attention and Concentration: Inadequate Memory: Impaired Mood: Sad, Anxious Affect: Sad, Flat, Anxious Thought Process & Associations: Intact Thought Content: Other Hallucination Type: None Delusion Type: None Suicidal Ideation: Yes (denies today) Suicidal Plan: No Suicidal Intention: No Homicidal Ideation: No Homicidal Plan: No Homicidal Intention: No Insight: Poor Judgment: Poor Results Labs Labs reviewed Test 09/03/17 11:48 09/03/17 15:30 White Blood Count 12.2 TH/MM3 Red Blood Count 4.53 MIL/MM3 Hemoglobin 14.7 GM/DL Hematocrit 43.2 % Mean Corpuscular Volume 95.4 FL Mean Corpuscular Hemoglobin 32.5 PG Mean Corpuscular Hemoglobin Concent 34.0 % Red Cell Distribution Width 12.3 % Platelet Count 274 TH/MM3 Mean Platelet Volume 10.7 FL CBC Comment AUTO DIFF Differential Total Cells Counted 100 Neutrophils % (Manual) 83 % Band Neutrophils % 2 % Lymphocytes % 7 % Monocytes % 4 % Eosinophils % 2 % Basophils % 2 % Neutrophils # (Manual) 10.4 TH/MM3 Differential Comment FINAL DIFF MANUAL Platelet Estimate NORMAL Platelet Morphology Comment NORMAL Red Cell Morphology Comment NORMAL Prothrombin Time 11.1 SEC Prothromb Time International Ratio 1.1 RATIO Activated Partial Thromboplast Time 26.4 SEC Blood Urea Nitrogen 22 MG/DL Creatinine 0.92 MG/DL Random Glucose 102 MG/DL Total Protein 8.1 GM/DL Albumin 3.9 GM/DL Calcium Level 9.5 MG/DL Alkaline Phosphatase 93 U/L Aspartate Amino Transf (AST/SGOT) 20 U/L Alanine Aminotransferase (ALT/SGPT) 23 U/L Total Bilirubin 0.8 MG/DL Sodium Level 139 MEQ/L Potassium Level 3.4 MEQ/L Chloride Level 105 MEQ/L Carbon Dioxide Level 22.1 MEQ/L Anion Gap 12 MEQ/L Estimat Glomerular Filtration Rate 60 ML/MIN Thyroid Stimulating Hormone 3rd Gen 2.070 uIU/ML Urine Color YELLOW Urine Turbidity CLEAR Urine pH 5.5 Urine Specific [place] 1.023 Urine Protein 100 mg/dL Urine Glucose (UA) NEG mg/dL Urine Ketones 40 mg/dL Urine Occult Blood NEG Urine Nitrite NEG Urine Bilirubin NEG Urine Urobilinogen 2.0 MG/DL Urine Leukocyte Esterase NEG Urine RBC 1 /hpf Urine WBC 1 /hpf Urine Squamous Epithelial Cells <1 /hpf Urine Bacteria RARE /hpf Urine Hyaline Casts 14 /lpf Urine Granular Casts 10 /lpf Urine Mucus FEW /lpf Microscopic Urinalysis Comment CATH-CULTURE IND Date/Time Source Procedure Growth Status 09/03/17 15:30 Urine Catheterized Urine Urine Culture Pending Received Vitals/IOs Vital Signs Date Time Temp Pulse Resp B/P (MAP) Pulse Ox O2 Delivery O2 Flow Rate FiO2 09/04/17 05:06 96.2 100 16 171/74 (106) 93 1/16/18 19:19 Room Air Intake and Output 09/04/17 09/04/17 09/05/17 08:00 16:00 00:00 Intake Total 240 ml Balance 240 ml Assessment & Plan Problem List: (1) Severe recurrent major depression without psychotic features ICD Codes: F33.2 - Major depressive disorder, recurrent severe without psychotic features Assessment & Plan Patient this time but noted was significant worsening of depression recently, noted with psychomotor retardation, speech latency endorsing depressed mood but denied any suicidal ideation. Patient continues to report feeling hopeless and helpless. We'll continue current treatment for now as patient has resumed her medications with upper titration as needed for depression. Order a dietitian consult. Will order OT and PT evaluations. Continue recommendations as per primary medical team. Collateral information pending. Discharge planning in progress. Petition for involuntary hospitalization completed as I have done the second opinion. Justification for Cont. Inpt. At risk for further decompensation if at lower level of care Discharge Planning Return back to her residence when medically and psychiatrically stable Vamshi Hatch MD Sep 04, 2017 09:41
[2017-09-04 09:52] LABS: AUTOMATED NEUTROPHIL # 5.5 TH/MM3 (1.8-7.7); BASOPHIL % 0.3 % (0.0-2.0); EOSINOPHIL # 0.1 TH/MM3 (0-0.4); EOSINOPHIL % 1.4 % (0.0-4.0); HEMATOCRIT 34.8 % (35.0-46.0); HEMOGLOBIN 11.9 GM/DL (11.6-15.3); LYMPH % 16.2 % (9.0-44.0); LYMPHOCYTE # 1.2 TH/MM3 (1.0-4.8); MEAN CELL VOLUME 96.2 FL (80.0-100.0); MEAN CORPUSCULAR HEMOGLOBIN 32.9 PG (27.0-34.0); MEAN CORPUSCULAR HGB CONC 34.2 % (32.0-36.0); MEAN PLATELET VOLUME 10.3 FL (7.0-11.0); MONO % 8.4 % (0.0-8.0); MONOCYTE # 0.6 TH/MM3 (0-0.9); NEUT % 73.7 % (16.0-70.0); PLATELET COUNT 189 TH/MM3 (150-450); RED BLOOD COUNT 3.62 MIL/MM3 (4.00-5.30); RED CELL DISTRIBUTION WIDTH 12.4 % (11.6-17.2); WHITE BLOOD COUNT 7.5 TH/MM3 (4.0-11.0)
[2017-09-04 10:39] LABS: ALBUMIN 2.9 GM/DL (3.4-5.0); AST (GOT) 17 U/L (15-37); BICARBONATE 25.4 MEQ/L (21.0-32.0); BLOOD UREA NITROGEN 22 MG/DL (7-18); CALCIUM 8.3 MG/DL (8.5-10.1); CHLORIDE 106 MEQ/L (98-107); CHOLESTEROL 213 MG/DL (120-200); CREATININE 0.91 MG/DL (0.50-1.00); GLOMERULAR FILTRATION RATE 61 ML/MIN (>89); GLUCOSE,RANDOM 110 MG/DL (74-106); SODIUM (NA) 139 MEQ/L (136-145)
[2017-09-04 11:12] LABS: ALKALINE PHOSPHATASE 69 U/L (45-117); ALT (GPT) 21 U/L (10-53); CHOLESTEROL/ HDL RATIO 3.87 RATIO; HDL CHOLESTEROL 54.9 MG/DL (40.0-60.0); LDL CHOLESTEROL 146 MG/DL (0-99); TOTAL BILIRUBIN ADULT 0.5 MG/DL (0.2-1.0); TOTAL PROTEIN 6.1 GM/DL (6.4-8.2); TRIGLYCERIDES 59 MG/DL (42-150)
--- NOTE | 2017-09-04 12:53 | EKG ---
Date Performed: 09/04/2017 Time Performed: 07:33:18 PTAGE: 72 years EKG: Sinus rhythm WITH OCCASIONAL VENTRICULAR PREMATURE COMPLEXES BORDERLINE LEFT AXIS DEVIATION NONSPECIFIC T-WAVE AB NORMALITY BORDERLINE ECG PREVIOUS TRACING : 01/26/2016 01.58 DOCTOR: Clarence Law Interpretating Date/Time 09/04/2017 12:52:54
[2017-09-04] MEDS ORDERED: POTASSIUM CHLORIDE 10 MEQ CONTROLLED RELEASE TAB PO ONE (13:45)
[2017-09-04 17:06] LABS: HEMOGLOBIN A1C 4.6 % (4.3-6.0)
[2017-09-04 18:21] VITALS: BP 131/63; PULSE 73; RESP 24; TEMP 97.6; O2SAT 94
--- NOTE | 2017-09-04 18:35 | RADRPT ---
EXAM DATE/TIME: 09/04/2017 17:45 [facility] COMPARISON: CT BRAIN W/O CONTRAST, September 03, 2017, 15:01. INDICATIONS : CVA. Generalized weakness. MEDICAL HISTORY : Hypertension. Hypothyroidism. Cerebrovascular disease. SURGICAL HISTORY : Bilateral shoulder surgery. Right hip replacement. Right orbital reconstruction. ENCOUNTER: Subsequent ACUITY: 2 day PAIN SCORE: 0/10 LOCATION: head. TECHNIQUE: Multiplanar, multisequence MRI of the brain was performed without contrast. FINDINGS: CEREBRUM: Small chronic bilateral lacunar infarctions involving the basal ganglia. The ventricles are normal fo r age. No evidence of midline shift, mass lesion, hemorrhage or acute infarction. No extraaxial flu id collections are seen. The pituitary gland and suprasellar cistern are normal in configuration. WHITE MATTER: No significant signal abnormalities are seen in the white matter. POSTERIOR FOSSA: The cerebellum and brainstem are intact. The 4th ventricle is midline. The cerebellopontine angle is unremarkable. The cerebellar tonsils are normal in position. DIFFUSION IMAGING: No focal areas of restricted diffusion are seen. No evidence of acute infarction. EXTRACRANIAL: The visualized portions of the orbits and paranasal sinuses are unremarkable. CONCLUSION: 1. No acute intracranial abnormality. 2. Small chronic bilateral basal ganglia lacunar infarctions. Enrique Obrien Jr., MD on September 04, 2017 at 18:30 Board Certified Radiologist. This report was verified electronically.
[2017-09-04] MEDS: PRIMIDONE 50 MG TAB PO SCH (20:21)
[2017-09-05] MEDS: ACETAMINOPHEN/HYDROcodone 325 MG/7.5 MG TAB PO SCH ×4 (06:00→20:52)
[2017-09-05] MEDS: ALPRAZolam 1 MG TAB PO SCH ×3 (06:00→20:52)
[2017-09-05] MEDS: LEVOTHYROXINE SODIUM 150 MCG TAB PO SCH (06:00)
[2017-09-05 06:27] VITALS: BP 134/66; PULSE 80; RESP 18; TEMP 97.8; O2SAT 95
[2017-09-05 07:46] LABS: BICARBONATE 27.1 MEQ/L (21.0-32.0); CALCIUM 8.7 MG/DL (8.5-10.1); CREATININE 0.88 MG/DL (0.50-1.00)
[2017-09-05] MEDS: amLODIPine BESYLATE 5 MG TAB PO SCH (08:27)
[2017-09-05] MEDS: cloNIDine HCL 0.1 MG TAB PO SCH ×2 (08:27→20:48)
[2017-09-05] MEDS: PARoxetine HCL 20 MG TAB PO SCH ×2 (08:27→20:48)
[2017-09-05] MEDS: LORATADINE 10 MG TAB PO SCH (08:27)
[2017-09-05] MEDS: LABETALOL HCL 200 MG TAB PO SCH ×2 (08:28→20:48)
[2017-09-05] MEDS ORDERED: INFLUENZA VIRUS VACCINE (QUADRIVALENT) 0.5 ML SYR IM ONE (10:00)
[2017-09-05] MEDS ORDERED: PNEUMOCOCCAL POLYVALENT INJ 25 MCG/0.5 ML SYR IM ONE (10:00)
--- NOTE | 2017-09-05 12:59 | HHI.PR ---
Subjective Remarks Follow-up visit HTN, CVA 2, hypothyroidism. Patient seen and examined today lying in bed. Appears drowsy but able to awaken to verbal stimuli. Response to questions and commands. States she doesn't feel good. When asked to elaborate patient is unable to elaborate. As per nursing, patient has been complaining of difficulty swallowing, poor appetite, poor by mouth intake. Denies any fevers or chills, denies nausea, vomiting, diarrhea. Complaints of dysuria. Denies pain or discomfort. Denies shortness of breath or dyspnea. Objective Vitals Vital Signs Date Time Temp Pulse Resp B/P (MAP) Pulse Ox O2 Delivery O2 Flow Rate FiO2 09/05/17 06:27 97.8 80 18 134/66 (88) 95 09/04/17 18:21 97.6 73 24 131/63 (85) 94 I/O 09/04/17 09/04/17 09/04/17 09/05/17 09/05/17 09/05/17 07:00 15:00 23:00 07:00 15:00 23:00 Intake Total 480 ml 720 ml 720 ml 720 ml Balance 480 ml 720 ml 720 ml 720 ml Intake Oral 480 ml 720 ml 720 ml 720 ml # Voids 3 2 2 # Bowel Movements 1 Result Diagram: 09/04/17 0910 09/05/17 0703 Imaging Last Impressions Brain MRI 09/04/17 0000 Signed Impressions: Service Date/Time: Monday, September 04, 2017 17:45 - CONCLUSION: 1. No acute intracranial abnormality. 2. Small chronic bilateral basal ganglia lacunar infarctions. Enrique Obrien Jr., MD Head CT 09/03/17 0000 Signed Impressions: Service Date/Time: Sunday, September 03, 2017 15:01 - CONCLUSION: Subcentimeter area of low density at the knee of the internal capsule left basal ganglia which may represent an interim lacunar infarct. Otherwise negative Ilia Bender MD Objective Remarks GENERAL: This is a well-nourished, well-developed patient, in no apparent distress. SKIN: Warm and dry. Pale. HEENT: Normocephalic. Pupils equal round and reactive. Nose without bleeding. Airway patent. NECK: Trachea midline. No JVD. Supple. CARDIOVASCULAR: Regular rate and rhythm without murmurs, gallops, or rubs. RESPIRATORY: Clear to auscultation. Breath sounds equal bilaterally. No wheezes , rales, or rhonchi. GASTROINTESTINAL: Abdomen soft, non-tender, nondistended. Bowel Sounds normoactive x4. MUSCULOSKELETAL: Extremities without clubbing, cyanosis, or edema. NEUROLOGICAL: Lethargic, Drowsy. Oriented to person, place. Moves all extremities. Slow speech. A/P Problem List: (1) HTN (hypertension) ICD Code: I10 - Essential (primary) hypertension (2) CVA (cerebral vascular accident) ICD Code: I63.9 - Cerebral infarction, unspecified (3) Hypothyroidism ICD Code: E03.9 - Hypothyroidism, unspecified (4) Arthritis ICD Code: M19.90 - Unspecified osteoarthritis, unspecified site (5) Depression with anxiety ICD Code: F41.8 - Other specified anxiety disorders (6) UTI (lower urinary tract infection) ICD Code: N39.0 - Lower urinary tract infectious disease Status: Acute Assessment and Plan Patient is a 72-year-old female with past medical history significant for HTN, CVA 2, ICH, hypothyroidism, arthritis, epilepsy, anxiety, and depression who was brought to emergency department on 09/03/17 by her . Anxiety and depression - Management per primary team Encephalopathy CVA history - CT scan done 09/03/17 reviewed, subcentimeter area of low density at the knee of the internal capsule left basal ganglia which may represent an interim lacunar infarct. Otherwise negative CT. - MRI showed 1. No acute intracranial abnormality. 2. Small chronic bilateral basal ganglia lacunar infarctions. - Patient with generalized weakness bilaterally, no noted facial droop. - Elevated lipid profile, will start atorvastatin 20 mg - Check ammonia level Dysphagia - complaints of difficulty swallowing - Will have ST to eval and treat HTN, uncontrolled - Labetalol 200 mg twice a day, Norvasc 5 mg daily, clonidine 0.1 mg twice a day - Monitor BP trend. Improving Seizure Epilepsy - Patient reports last seizure 3 years ago - Resume home dose of Primidone 50 mg at bedtime - Monitor for seizure activity closely due to recent taper from benzodiazepines. Patient has been on Xanax and completely stopped. Restarted on Xanax every 8 hours but psychiatry has plan to taper dose. Arthritis/chronic pain - [place] 7.5 mg every 8 hours ordered by psychiatry - Hold off [place] if continues to be lethargic. Hypothyroidism - Resume levothyroxine 150 MCG's daily - TSH checked 2.07 Abnormal UA - Complaints of dysuria - UA no growth in 48 hours. We'll not start any antibiotic. Hypokalemia - Potassium replacement - Magnesium 1.9. magnesium replacement - Check lab in a.m. DVT prophylaxis - Early ambulation, if not ambulating in to lethargic we'll start Lovenox. Teds for now Discuss with patient, nursing Problem Qualifiers (1) HTN (hypertension): Qualified Codes: I10 - Essential (primary) hypertension (2) CVA (cerebral vascular accident): Qualified Codes: I63.9 - Cerebral infarction, unspecified (3) Hypothyroidism: Qualified Codes: E03.9 - Hypothyroidism, unspecified Adelaide Lombardo Sep 05, 2017 12:59
[2017-09-05] MEDS: ATORVASTATIN 20 MG TAB PO SCH (13:15)
[2017-09-05] MEDS ORDERED: SODIUM CHLORID 0.9% 500 ML INJ 500 ML IV SCH (14:00)
[2017-09-05] MEDS ORDERED: MAGNESIUM SULFATE 1 GM PREMIX 100 ML IV ONE (14:00)
[2017-09-05] MEDS ORDERED: POTASSIUM CHLOR 20 MEQ PREMIX 100 ML IV ONE (14:00)
[2017-09-05] MEDS ORDERED: POTASSIUM CHLORIDE 25 MEQ EFFERVESCENT TAB PO ONE (14:30)
[2017-09-05] MEDS ORDERED: MAGNESIUM OXIDE 400 MG TAB PO ONE (15:00)
--- NOTE | 2017-09-05 16:54 | HHI.PYPN ---
Subjective Remarks Patient seen for follow-up, chart reviewed. Discussion with nursing staff reported that patient continues with poor oral intake but ate more this morning ; continues with poor sleep. Patient was found lying on hospital bed, noted to be somnolent with some difficulty staying awake for interview. Patient states that she has had poor sleep last night but had been feeling "better emotionally ". She continues to report feeling weak physically and states wanting to try to eat better. She continues report to feel depressed but states wanting to live. Review of Systems Except as stated in HPI: all other systems reviewed are Neg Mental Status Examination Appearance: Disheveled Consciousness: Alert Orientation: Person Motor Activity: Abnormal gait Speech: Hesitant, Slow, Other Language: Other Fund of Knowledge: Inadequate Attention and Concentration: Inadequate Memory: Impaired Mood: Sad Affect: Sad, Flat Thought Process & Associations: Intact Thought Content: Other Hallucination Type: None Delusion Type: None Suicidal Ideation: Yes (denies today) Suicidal Plan: No Suicidal Intention: No Homicidal Ideation: No Homicidal Plan: No Homicidal Intention: No Insight: Poor Judgment: Poor Results Labs labs reviewed Test 09/05/17 07:03 Blood Urea Nitrogen 14 MG/DL Creatinine 0.88 MG/DL Random Glucose 101 MG/DL Calcium Level 8.7 MG/DL Sodium Level 139 MEQ/L Potassium Level 3.3 MEQ/L Chloride Level 106 MEQ/L Carbon Dioxide Level 27.1 MEQ/L Anion Gap 6 MEQ/L Estimat Glomerular Filtration Rate 63 ML/MIN Magnesium Level 1.9 MG/DL Date/Time Source Procedure Growth Status 09/03/17 15:30 Urine Catheterized Urine Urine Culture - Final NO GROWTH IN 48 HOURS. Complete Vitals/IOs Vital Signs Date Time Temp Pulse Resp B/P (MAP) Pulse Ox O2 Delivery O2 Flow Rate FiO2 09/05/17 06:27 97.8 80 18 134/66 (88) 95 09/03/17 19:19 Room Air Intake and Output 09/05/17 09/05/17 09/06/17 08:00 16:00 00:00 Intake Total 480 ml 720 ml Balance 480 ml 720 ml Assessment & Plan Problem List: (1) Severe recurrent major depression without psychotic features ICD Codes: F33.2 - Major depressive disorder, recurrent severe without psychotic features Assessment & Plan Patient continues to endorse depressed mood but denies any suicidal ideation. Patient noted to be slightly more motivated to improve PO intake. 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 Will change diet to puree diet. Will add trazodone 50mg PO HS for sleep disturbance, continue rest of medications. Continue recommendations as per primary medical team. Continue PT and OT. Continue to assist patient with ADLs. Discharge planning in progress. Justification for Cont. Inpt. At risk for decompensation at lower level of care. Discharge Planning To be discharged back to residence. Vamshi Hatch MD Sep 05, 2017 16:54
[2017-09-05 17:28] VITALS: BP 124/55; PULSE 63; RESP 18; TEMP 98.2; O2SAT 92
[2017-09-05] MEDS: PRIMIDONE 50 MG TAB PO SCH (20:45)
[2017-09-05] MEDS: traZODone HCL 50 MG TAB PO SCH (20:45)
[2017-09-06 06:00] VITALS: BP 137/63; PULSE 58; RESP 16; TEMP 97.3; O2SAT 95
[2017-09-06] MEDS: ALPRAZolam 1 MG TAB PO SCH ×3 (06:15→20:42)
[2017-09-06] MEDS: ACETAMINOPHEN/HYDROcodone 325 MG/7.5 MG TAB PO SCH (06:16)
[2017-09-06] MEDS: LEVOTHYROXINE SODIUM 150 MCG TAB PO SCH (06:16)
--- NOTE | 2017-09-06 08:12 | HHI.PYPN ---
Subjective Remarks She is seen for follow-up, chart reviewed. Discussion staff reported the patient continues to require assistance for meals as well as to ambulate. Patient slept okay patient had 3 loose stools last evening. Patient found lying in hospital bed asleep was able to wake up to interact with interview. Patient continues to be noted to have psychomotor retardation with speech slightly. Patient states that she has been feeling "not good" continues report feeling depressed but denies any thoughts of not wanting to be alive stated that she wants to live. Patient encouraged to continue by mouth nutritional intake as well as to work with physical therapy which she agreed. Patient was encouraged to take a shower which she was reluctant at first but then agreed. Review of Systems Except as stated in HPI: all other systems reviewed are Neg Mental Status Examination Appearance: Disheveled Consciousness: Alert Orientation: Person Motor Activity: Abnormal gait Speech: Hesitant, Slow, Other Language: Other Fund of Knowledge: Inadequate Attention and Concentration: Inadequate Memory: Impaired Mood: Sad Affect: Sad, Flat Thought Process & Associations: Intact, Linear Thought Content: Other Hallucination Type: None Delusion Type: None Suicidal Ideation: Yes (denies today) Suicidal Plan: No Suicidal Intention: No Homicidal Ideation: No Homicidal Plan: No Homicidal Intention: No Insight: Poor Judgment: Poor Results Labs Date/Time Source Procedure Growth Status 09/03/17 15:30 Urine Catheterized Urine Urine Culture - Final NO GROWTH IN 48 HOURS. Complete Vitals/IOs Vital Signs Date Time Temp Pulse Resp B/P (MAP) Pulse Ox O2 Delivery O2 Flow Rate FiO2 09/06/17 08:02 16 09/06/17 06:00 97.3 58 137/63 (87) 95 09/03/17 19:19 Room Air Intake and Output 09/06/17 09/06/17 09/07/17 08:00 16:00 00:00 Intake Total 120 ml Balance 120 ml Assessment & Plan Problem List: (1) Severe recurrent major depression without psychotic features ICD Codes: F33.2 - Major depressive disorder, recurrent severe without psychotic features Assessment & Plan Continues to have poor motivation, with anhedonia, denies any suicidal ideations at this time. Patient continues to have difficulty with basic ADLs requiring assistance for meals as well as for ambulating to and from the restroom. We'll increase paroxetine to 30 mg by mouth daily for depression, continue rest of medications. Continue to assist patient with ADLs. Patient to continue with physical therapy and occupational therapy. Continue to encourage patient to maintain personal hygiene. Continue speech therapy evaluation for swallowing. Discharge planning in progress Justification for Cont. Inpt. At risk for further decompensation if at lower level of care Discharge Planning To return back to her residence once psychiatrically and medically stable Vamshi Hatch MD Sep 06, 2017 08:12
[2017-09-06] MEDS: LABETALOL HCL 200 MG TAB PO SCH ×2 (09:00→20:42)
[2017-09-06 09:38] LABS: ALBUMIN 2.9 GM/DL (3.4-5.0); AST (GOT) 9 U/L (15-37); BICARBONATE 30.1 MEQ/L (21.0-32.0); BLOOD UREA NITROGEN 12 MG/DL (7-18); CALCIUM 8.9 MG/DL (8.5-10.1); CHLORIDE 102 MEQ/L (98-107); CREATININE 0.75 MG/DL (0.50-1.00); GLOMERULAR FILTRATION RATE 76 ML/MIN (>89); GLUCOSE,RANDOM 87 MG/DL (74-106); SODIUM (NA) 137 MEQ/L (136-145)
[2017-09-06 09:42] LABS: ALKALINE PHOSPHATASE 65 U/L (45-117); ALT (GPT) 14 U/L (10-53); TOTAL BILIRUBIN ADULT 0.3 MG/DL (0.2-1.0); TOTAL PROTEIN 5.8 GM/DL (6.4-8.2)
[2017-09-06] MEDS: PARoxetine HCL 20 MG TAB PO SCH (10:18)
[2017-09-06] MEDS: ATORVASTATIN 20 MG TAB PO SCH (10:19)
[2017-09-06] MEDS: LORATADINE 10 MG TAB PO SCH (10:20)
[2017-09-06] MEDS: amLODIPine BESYLATE 5 MG TAB PO SCH (10:24)
[2017-09-06] MEDS: cloNIDine HCL 0.1 MG TAB PO SCH ×2 (10:24→20:42)
--- NOTE | 2017-09-06 11:28 | HHI.PR ---
Subjective Remarks Follow-up visit HTN, CVA 2, hypothyroidism. Patient seen and examined today lying in bed. Drowsy but able to awaken to verbal stimuli. Response to questions and commands. Patient states that she doesn't have pain with swallowing but she feels like the food gets stuck after she swallows. She was evaluated by speech therapy yesterday. Denies any fevers or chills, denies nausea, vomiting. Denies pain or discomfort. Denies shortness of breath or dyspnea. Objective Vitals Vital Signs Date Time Temp Pulse Resp B/P (MAP) Pulse Ox O2 Delivery O2 Flow Rate FiO2 09/06/17 08:02 16 09/06/17 06:00 97.3 58 16 137/63 (87) 95 09/05/17 17:28 98.2 63 18 124/55 (78) 92 I/O 09/05/17 09/05/17 09/05/17 09/06/17 09/06/17 09/06/17 07:00 15:00 23:00 07:00 15:00 23:00 Intake Total 720 ml 720 ml 880 ml 120 ml Balance 720 ml 720 ml 880 ml 120 ml Intake Oral 720 ml 720 ml 880 ml 120 ml # Voids 2 2 2 # Bowel Movements 1 2 Result Diagram: 09/04/17 0910 09/06/17 0843 Imaging Last Impressions Brain MRI 09/04/17 0000 Signed Impressions: Service Date/Time: Monday, September 04, 2017 17:45 - CONCLUSION: 1. No acute intracranial abnormality. 2. Small chronic bilateral basal ganglia lacunar infarctions. Enrique Obrien Jr., MD Head CT 09/03/17 0000 Signed Impressions: Service Date/Time: Sunday, September 03, 2017 15:01 - CONCLUSION: Subcentimeter area of low density at the knee of the internal capsule left basal ganglia which may represent an interim lacunar infarct. Otherwise negative Ilia Bender MD Objective Remarks GENERAL: This is a well-nourished, well-developed patient, in no apparent distress. SKIN: Warm and dry. Pale. HEENT: Normocephalic. Pupils equal round and reactive. Nose without bleeding. Airway patent. NECK: Trachea midline. CARDIOVASCULAR: Regular rate and rhythm without murmurs, gallops, or rubs. RESPIRATORY: Clear to auscultation. Breath sounds equal bilaterally. No wheezes , rales, or rhonchi. GASTROINTESTINAL: Abdomen soft, non-tender, nondistended. Bowel Sounds normoactive x4. MUSCULOSKELETAL: Extremities without clubbing, cyanosis, or edema. NEUROLOGICAL: Lethargic, Drowsy. Oriented to person, place. Moves all extremities. Slow speech. A/P Problem List: (1) HTN (hypertension) ICD Code: I10 - Essential (primary) hypertension (2) CVA (cerebral vascular accident) ICD Code: I63.9 - Cerebral infarction, unspecified (3) Hypothyroidism ICD Code: E03.9 - Hypothyroidism, unspecified (4) Arthritis ICD Code: M19.90 - Unspecified osteoarthritis, unspecified site (5) Depression with anxiety ICD Code: F41.8 - Other specified anxiety disorders (6) UTI (lower urinary tract infection) ICD Code: N39.0 - Lower urinary tract infectious disease Status: Acute Assessment and Plan Patient is a 72-year-old female with past medical history significant for HTN, CVA 2, ICH, hypothyroidism, arthritis, epilepsy, anxiety, and depression who was brought to emergency department on 09/03/17 by her . Anxiety and depression - Management per primary team Encephalopathy CVA history - CT scan done 09/03/17 reviewed, subcentimeter area of low density at the knee of the internal capsule left basal ganglia which may represent an interim lacunar infarct. Otherwise negative CT. - MRI showed 1. No acute intracranial abnormality. 2. Small chronic bilateral basal ganglia lacunar infarctions. - Patient with generalized weakness bilaterally, no noted facial droop. - Elevated lipid profile, will start atorvastatin 20 mg - Check ammonia level Dysphagia - complaints of difficulty swallowing - Speech evaluation done. Recommends pured thin liquids. - Patient states that she feels food gets stuck on her throat. May possibly benefit with a GI consult if continues to complain of dysphagia, ? esophageal stricture Anemia, possibly of chronic disease vs [place]RIST[place] - Pale - H/H with slight drop - Repeat H/H. check stool for occult blood. - Check iron studies. HTN, uncontrolled - Labetalol 200 mg twice a day, Norvasc 5 mg daily, clonidine 0.1 mg twice a day - Monitor BP trend. Improving Seizure Epilepsy - Patient reports last seizure 3 years ago - Resume home dose of Primidone 50 mg at bedtime - Monitor for seizure activity closely due to recent taper from benzodiazepines. Patient has been on Xanax and completely stopped. Restarted on Xanax every 8 hours but psychiatry has plan to taper dose. Arthritis/chronic pain - [place] 7.5 mg every 8 hours ordered by psychiatry - Hold off [place] if continues to be lethargic. Hypothyroidism - Resume levothyroxine 150 MCG's daily - TSH checked 2.07 Abnormal UA - Complaints of dysuria - UA no growth in 48 hours. We'll not start any antibiotic. Hypokalemia - Potassium replacement - Magnesium 1.9. magnesium replacement - Labs within normal. Resolved DVT prophylaxis - Early ambulation, if not ambulating in to lethargic we'll start Lovenox. Teds for now Discuss with patient, nursing Problem Qualifiers (1) HTN (hypertension): Qualified Codes: I10 - Essential (primary) hypertension (2) CVA (cerebral vascular accident): Qualified Codes: I63.9 - Cerebral infarction, unspecified (3) Hypothyroidism: Qualified Codes: E03.9 - Hypothyroidism, unspecified Adelaide Lombardo Sep 06, 2017 11:28
[2017-09-06 13:51] LABS: HEMATOCRIT 34.7 % (35.0-46.0); HEMOGLOBIN 11.8 GM/DL (11.6-15.3); MEAN CELL VOLUME 95.9 FL (80.0-100.0); MEAN CORPUSCULAR HEMOGLOBIN 32.7 PG (27.0-34.0); MEAN CORPUSCULAR HGB CONC 34.1 % (32.0-36.0); MEAN PLATELET VOLUME 10.9 FL (7.0-11.0); PLATELET COUNT 158 TH/MM3 (150-450); RED BLOOD COUNT 3.61 MIL/MM3 (4.00-5.30); RED CELL DISTRIBUTION WIDTH 12.6 % (11.6-17.2); WHITE BLOOD COUNT 5.1 TH/MM3 (4.0-11.0)
[2017-09-06 14:32] LABS: IRON (FE) 58 MCG/DL (50-170); TOTAL IRON BINDING CAPACITY 232 MCG/DL (250-450)
[2017-09-06 14:38] LABS: FERRITIN 80 NG/ML (8-252)
[2017-09-06] MEDS ORDERED: PARoxetine HCL 20 MG TAB PO SCH (16:00)
[2017-09-06 17:08] VITALS: BP 134/73; PULSE 59; RESP 17; TEMP 97.3; O2SAT 94
[2017-09-06] MEDS: traZODone HCL 50 MG TAB PO SCH (20:42)
[2017-09-06] MEDS: ACETAMINOPHEN/HYDROcodone 325 MG/5 MG TAB PO PRN (20:42)
[2017-09-06] MEDS: PRIMIDONE 50 MG TAB PO SCH (21:00)
[2017-09-07 06:00] VITALS: BP 131/59; PULSE 55; RESP 14; TEMP 98.1; O2SAT 96
[2017-09-07] MEDS: LEVOTHYROXINE SODIUM 150 MCG TAB PO SCH (06:00)
[2017-09-07] MEDS: ALPRAZolam 1 MG TAB PO SCH ×3 (07:57→21:02)
--- NOTE | 2017-09-07 09:45 | HHI.PR ---
Subjective Remarks The patient was lethargic. She said that she wasn't eating because it was difficult to swallow. She said she hasn't seen the stomach doctor in a long time. Discussed with nursing. Objective Vitals Vital Signs Date Time Temp Pulse Resp B/P (MAP) Pulse Ox O2 Delivery O2 Flow Rate FiO2 09/07/17 06:00 98.1 55 14 131/59 (83) 96 09/06/17 17:08 97.3 59 17 134/73 (93) 94 I/O 09/06/17 09/06/17 09/06/17 09/07/17 09/07/17 09/07/17 07:00 15:00 23:00 07:00 15:00 23:00 Intake Total 120 ml 1320 ml 120 ml Balance 120 ml 1320 ml 120 ml Intake Oral 120 ml 1320 ml 120 ml # Voids 2 4 # Bowel Movements 2 2 Result Diagram: 09/06/17 1233 09/06/17 0843 Imaging Last Impressions Brain MRI 09/04/17 0000 Signed Impressions: Service Date/Time: Monday, September 04, 2017 17:45 - CONCLUSION: 1. No acute intracranial abnormality. 2. Small chronic bilateral basal ganglia lacunar infarctions. Enrique Obrien Jr., MD Head CT 09/03/17 0000 Signed Impressions: Service Date/Time: Sunday, September 03, 2017 15:01 - CONCLUSION: Subcentimeter area of low density at the knee of the internal capsule left basal ganglia which may represent an interim lacunar infarct. Otherwise negative Ilia Bender MD Objective Remarks GENERAL: Frail, elderly lady. SKIN: Warm and dry. Pale. HEENT: Normocephalic. Pupils equal round and reactive. Nose without bleeding. Airway patent. NECK: Trachea midline. CARDIOVASCULAR: Regular rate and rhythm without murmurs, gallops, or rubs. RESPIRATORY: Clear to auscultation. Breath sounds equal bilaterally. No wheezes , rales, or rhonchi. GASTROINTESTINAL: Abdomen soft, slightly tender, nondistended. Bowel Sounds normoactive x4. MUSCULOSKELETAL: Extremities without clubbing, cyanosis, or edema. NEUROLOGICAL: Lethargic. Oriented to person, place. Moves all extremities. Slow speech. Medications and IVs Current Medications Medications (Trade) Dose Ordered Sig/Jaxon Route Start Time Stop Time Status Last Admin (Tylenol) 650 mg Q4H PRN PO 09/03/17 18:45 (Milk Of Magnesia Liq) 30 ml DAILY PRN PO 09/03/17 18:45 09/05/17 18:24 (Mag-Al Plus Susp Liq) 30 ml Q6H PRN PO 09/03/17 18:45 (Norvasc) 5 mg DAILY PO 09/04/17 09:00 09/06/17 10:24 (Catapres) 0.1 mg BID PO 09/03/17 21:00 09/06/17 20:42 (Trandate) 200 mg BID PO 09/03/17 21:00 09/06/17 20:42 (Synthroid) 150 mcg DAILY@0600 PO 09/04/17 06:00 09/07/17 06:00 (Claritin) 10 mg DAILY PO 09/04/17 09:00 09/06/17 10:20 (Mysoline) 50 mg HS PO 09/03/17 21:00 09/06/17 21:00 Patient Own Medication PT OWN MED: [place]... QID EACH EYE 09/03/17 21:00 Future Hold (Xanax) 1 mg Q8HR PO 09/03/17 22:00 09/06/17 20:42 (Desyrel) 50 mg HS PO 09/05/17 21:00 09/06/17 20:42 (Lipitor) 20 mg DAILY PO 09/05/17 13:15 09/06/17 10:19 (Paxil) 30 mg DAILY PO 09/06/17 09:00 09/06/17 10:18 (Paxil) 20 mg DAILY@1600 PO 09/06/17 16:00 09/06/17 16:53 ([place] 5-325 Mg) 1 tab Q6H PRN PO 09/06/17 11:30 09/06/17 20:42 A/P Problem List: (1) HTN (hypertension) ICD Code: I10 - Essential (primary) hypertension (2) CVA (cerebral vascular accident) ICD Code: I63.9 - Cerebral infarction, unspecified (3) Hypothyroidism ICD Code: E03.9 - Hypothyroidism, unspecified (4) Arthritis ICD Code: M19.90 - Unspecified osteoarthritis, unspecified site (5) Depression with anxiety ICD Code: F41.8 - Other specified anxiety disorders (6) UTI (lower urinary tract infection) ICD Code: N39.0 - Lower urinary tract infectious disease Status: Acute Assessment and Plan Anxiety and depression The pt appears anhedonic. - Management per primary team Encephalopathy/ CVA history CT scan done 09/03/17 reviewed, subcentimeter area of low density at the knee of the internal capsule left basal ganglia which may represent an interim lacunar infarct. Otherwise negative CT. MRI showed 1. No acute intracranial abnormality. 2. Small chronic bilateral basal ganglia lacunar infarctions. Patient with generalized weakness bilaterally, no noted facial droop. TSH normal and ammonia level low. - Elevated lipid profile, will start atorvastatin 20 mg. - PT/ OT. Dysphagia Complains of difficulty swallowing. Speech evaluation done. Recommends pured thin liquids. - Patient states that she feels food gets stuck on her throat. GI consult, ? esophageal stricture. Abdominal tenderness Noted on exam. - check LFTs, lipase level. - GI eval. HTN Well controlled at this time. - Labetalol 200 mg twice a day, Norvasc 5 mg daily, clonidine 0.1 mg twice a day. Epilepsy Patient reports last seizure 3 years ago. - Resume home dose of Primidone 50 mg at bedtime - Monitor for seizure activity closely due to recent taper from benzodiazepines. Patient has been on Xanax and completely stopped. Restarted on Xanax every 8 hours but psychiatry has plan to taper dose. Arthritis/chronic pain The pt has been lethargic. - hold pain meds when lethargic. Hypothyroidism TSH checked 2.07. - Resume levothyroxine 150 MCG's daily. Hypokalemia Repleted. - check BMP, Mg, Phos. PPx: Lovenox Problem Qualifiers (1) HTN (hypertension): Qualified Codes: I10 - Essential (primary) hypertension (2) CVA (cerebral vascular accident): Qualified Codes: I63.9 - Cerebral infarction, unspecified (3) Hypothyroidism: Qualified Codes: E03.9 - Hypothyroidism, unspecified Luciano Almaraz DO Sep 07, 2017 09:45
[2017-09-07] MEDS: LABETALOL HCL 200 MG TAB PO SCH ×2 (09:59→21:02)
[2017-09-07] MEDS: PARoxetine HCL 20 MG TAB PO SCH (10:01)
[2017-09-07] MEDS: LORATADINE 10 MG TAB PO SCH (10:09)
[2017-09-07] MEDS: cloNIDine HCL 0.1 MG TAB PO SCH ×2 (10:09→21:02)
[2017-09-07] MEDS: ATORVASTATIN 20 MG TAB PO SCH (10:10)
[2017-09-07] MEDS: ENOXAPARIN SODIUM 30 MG/0.3 ML SYRINGE SQ SCH (10:10)
[2017-09-07] MEDS: amLODIPine BESYLATE 5 MG TAB PO SCH (10:10)
--- NOTE | 2017-09-07 12:25 | HHI.PYPN ---
Subjective Remarks The patient was seen today for psychiatric reevaluation. Case was discussed with nursing staff. Chart was reviewed. Vital signs and labs reviewed. On psychiatric evaluation patient is found sleeping, she awakes but is kind of guarded, oppositional and irritable. She reports that she continues to be very depressed, feeling down, with difficulty sleeping at night, poor appetite and lack of motivations. She denies suicidal ideation, no plans. Denies visual and auditory hallucinations. The patient is fully oriented 3. Comply her medications, no significant side effects. Mental Status Examination Appearance: Disheveled Consciousness: Alert Orientation: Person Motor Activity: Abnormal gait Speech: Hesitant, Slow, Other Language: Other Fund of Knowledge: Inadequate Attention and Concentration: Inadequate Memory: Impaired Mood: Sad Affect: Sad, Flat Thought Process & Associations: Intact, Linear Thought Content: Other Hallucination Type: None Delusion Type: None Suicidal Ideation: Yes (denies today) Suicidal Plan: No Suicidal Intention: No Homicidal Ideation: No Homicidal Plan: No Homicidal Intention: No Insight: Poor Judgment: Poor Results Labs Test 09/06/17 12:33 09/07/17 11:58 White Blood Count 5.1 TH/MM3 Red Blood Count 3.61 MIL/MM3 Hemoglobin 11.8 GM/DL Hematocrit 34.7 % Mean Corpuscular Volume 95.9 FL Mean Corpuscular Hemoglobin 32.7 PG Mean Corpuscular Hemoglobin Concent 34.1 % Red Cell Distribution Width 12.6 % Platelet Count 158 TH/MM3 Mean Platelet Volume 10.9 FL Iron Level 58 MCG/DL Total Iron Binding Capacity 232 MCG/DL Percent Iron Saturation 25.0 % Ferritin 80 NG/ML Date/Time Source Procedure Growth Status 09/07/17 00:50 Stool Stool Stool Occult Blood (NANDINI) - Final HEMOCCULT NEGATIVE Complete 09/03/17 15:30 Urine Catheterized Urine Urine Culture - Final NO GROWTH IN 48 HOURS. Complete Vitals/IOs Vital Signs Date Time Temp Pulse Resp B/P (MAP) Pulse Ox O2 Delivery O2 Flow Rate FiO2 09/07/17 06:00 98.1 55 14 131/59 (83) 96 09/03/17 19:19 Room Air Intake and Output 09/07/17 09/07/17 09/08/17 08:00 16:00 00:00 Intake Total 120 ml Balance 120 ml Assessment & Plan Problem List: (1) Severe recurrent major depression without psychotic features ICD Codes: F33.2 - Major depressive disorder, recurrent severe without psychotic features Assessment & Plan: Patient continues to be acutely depressed. Paxil was increased yesterday to 30 mg. She continues to endorse depression and insomnia. We'll increase trazodone to 100 mg at bedtime. Assessment & Plan Estimated LOS: days Justification for Cont. Inpt. Patient is very depressed, she needs to continue psychiatric hospitalization for stabilization. Vernon Charlton MD Sep 07, 2017 12:25
[2017-09-07 12:45] LABS: BICARBONATE 29.6 MEQ/L (21.0-32.0); CALCIUM 9.1 MG/DL (8.5-10.1); CREATININE 0.77 MG/DL (0.50-1.00); MAGNESIUM 2.2 MG/DL (1.5-2.5)
[2017-09-07 12:49] LABS: DIRECT BILIRUBIN ADULT 0.1 MG/DL (0.0-0.2); INDIRECT BILIRUBIN 0.2 MG/DL (0.0-0.8); TOTAL BILIRUBIN ADULT 0.3 MG/DL (0.2-1.0); TOTAL PROTEIN 6.2 GM/DL (6.4-8.2)
--- NOTE | 2017-09-07 13:20 | PD.CONS ---
HPI History of Present Illness This is a 72 year old female with past medical history significant for HTN, CVA 2, ICH, hypothyroidism, arthritis, epilepsy, anxiety, and depression who was brought to emergency department on 09/03/17 by her for worsening depression to the point where she hasn't been eating, getting out of bed or talking. GI have been consulted for dysphagia. ST consulted and recommended pureed diet. There was paucity of information from pt, she is not talking. I was able to get this much from her " food feels stuck in my throat and not going down, on going for weeks". Initially refused EGD, but later agreed to think about it. Not able to obtain any further information. wasn't present in the room. (Shane Martins) PFSH Past Medical History Hypertension Hypothyroidism CVA 2 Subdural hematoma June 2016 Arthritis Epilepsy Anxiety Depression Past Surgical History Appendectomy Right shoulder surgery 3 Right orbital reconstruction with mesh due to fracture 06/2016 (Shane Martins) Coded Allergies: aspirin (Unverified Allergy, Severe, 04/02/17) butorphanol (Unverified Allergy, Severe, 04/02/17) ciprofloxacin (Unverified Allergy, Severe, 04/02/17) erythromycin base (Unverified Allergy, Severe, 04/02/17) ferrous fumarate (Unverified Allergy, Severe, 04/02/17) ferrous sulfate (Unverified Allergy, Severe, 04/02/17) ferumoxytol (Unverified Allergy, Severe, 04/02/17) iron (Unverified Allergy, Severe, 04/02/17) levofloxacin (Unverified Allergy, Severe, 04/02/17) metoprolol (Unverified Allergy, Severe, 04/02/17) multivitamin infusion, adult no.4 with vitamin K (Unverified Allergy, Severe, 04/02/17) multivitamin with iron,other minerals (Unverified Allergy, Severe, 04/02/17 ) omeprazole (Unverified Allergy, Severe, 04/02/17) oxycodone (Unverified Allergy, Severe, 04/02/17) pentazocine (Unverified Allergy, Severe, 04/02/17) celecoxib (Unverified Allergy, Intermediate, ITCH, N&V, 04/02/17) amcinonide (Unverified Allergy, Unknown, 04/02/17) beclomethasone (Unverified Allergy, Unknown, 04/02/17) betamethasone (Unverified Allergy, Unknown, 04/02/17) buspirone (Unverified Allergy, Unknown, 04/02/17) caffeine (Unverified Allergy, Unknown, 04/02/17) desoximetasone (Unverified Allergy, Unknown, 04/02/17) dexamethasone (Unverified Allergy, Unknown, 04/02/17) diazepam (Unverified Allergy, Unknown, 04/02/17) divalproex sodium (Unverified Allergy, Unknown, 04/02/17) duloxetine (Unverified Allergy, Unknown, 04/02/17) escitalopram (Unverified Allergy, Unknown, 04/02/17) fludrocortisone (Unverified Allergy, Unknown, 04/02/17) flunisolide (Unverified Allergy, Unknown, 04/02/17) fluocinolone acetonide (Unverified Allergy, Unknown, 04/02/17) fluocinonide (Unverified Allergy, Unknown, 04/02/17) fluorometholone (Unverified Allergy, Unknown, 04/02/17) flurandrenolide (Unverified Allergy, Unknown, 04/02/17) fluticasone (Unverified Allergy, Unknown, 04/02/17) fluticasone furoate (Unverified Allergy, Unknown, 04/02/17) hydrocortisone (Unverified Allergy, Unknown, 04/02/17) methylprednisolone (Unverified Allergy, Unknown, 04/02/17) mometasone furoate (Unverified Allergy, Unknown, 04/02/17) naproxen (Unverified Allergy, Unknown, 04/02/17) ofloxacin (Unverified Allergy, Unknown, 04/02/17) prednisolone (Unverified Allergy, Unknown, 04/02/17) prednisone (Unverified Allergy, Unknown, 04/02/17) prochlorperazine (Unverified Allergy, Unknown, 04/02/17) triamcinolone (Unverified Allergy, Unknown, 04/02/17) Uncoded Allergies: Arthrotec (Allergy, Unknown, 04/09/13) Codeine Phosphate (Allergy, Unknown, 04/09/13) NSAIDS (Allergy, Unknown, 04/09/13) Medications Current Medications Medications (Trade) Dose Ordered Sig/Jaxon Route Start Time Stop Time Status Last Admin (Tylenol) 650 mg Q4H PRN PO 09/03/17 18:45 (Milk Of Magnesia Liq) 30 ml DAILY PRN PO 09/03/17 18:45 09/05/17 18:24 (Mag-Al Plus Susp Liq) 30 ml Q6H PRN PO 09/03/17 18:45 (Norvasc) 5 mg DAILY PO 09/04/17 09:00 09/06/17 10:24 (Catapres) 0.1 mg BID PO 09/03/17 21:00 09/06/17 20:42 (Trandate) 200 mg BID PO 09/03/17 21:00 09/06/17 20:42 (Synthroid) 150 mcg DAILY@0600 PO 09/04/17 06:00 09/07/17 06:00 (Claritin) 10 mg DAILY PO 09/04/17 09:00 09/06/17 10:20 (Mysoline) 50 mg HS PO 09/03/17 21:00 09/06/17 21:00 Patient Own Medication PT OWN MED: Cromo... 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 No acute intracranial abnormality. 2. Small chronic bilateral basal ganglia lacunar infarctions. Enrique Obrien Jr., MD Head CT 09/03/17 0000 Signed Impressions: Service Date/Time: Sunday, September 03, 2017 15:01 - CONCLUSION: Subcentimeter area of low density at the knee of the internal capsule left basal ganglia which may represent an interim lacunar infarct. Otherwise negative Ilia Bender MD Laboratory Test 09/07/17 11:58 Blood Urea Nitrogen 9 MG/DL Creatinine 0.77 MG/DL Random Glucose 87 MG/DL Total Protein 6.2 GM/DL Albumin 3.0 GM/DL Calcium Level 9.1 MG/DL Phosphorus Level 3.0 MG/DL Magnesium Level 2.2 MG/DL Alkaline Phosphatase 76 U/L Aspartate Amino Transf (AST/SGOT) 13 U/L Alanine Aminotransferase (ALT/SGPT) 14 U/L Total Bilirubin 0.3 MG/DL Direct Bilirubin 0.1 MG/DL Sodium Level 137 MEQ/L Potassium Level 4.0 MEQ/L Chloride Level 102 MEQ/L Carbon Dioxide Level 29.6 MEQ/L Anion Gap 5 MEQ/L Estimat Glomerular Filtration Rate 74 ML/MIN Indirect Bilirubin 0.2 MG/DL Lipase 92 U/L Date/Time Source Procedure Growth Status 09/07/17 00:50 Stool Stool Stool Occult Blood (NANDINI) - Final HEMOCCULT NEGATIVE Complete 09/03/17 15:30 Urine Catheterized Urine Urine Culture - Final NO GROWTH IN 48 HOURS. Complete Physical Examination HEENT: normocephalic; atraumatic; no jaundice. CHEST: Chest is clear to auscultation and percussion. CARDIAC: Regular rate and rhythm with no murmur gallop or rubs. ABDOMEN: Soft, nondistended, nontender; no hepatosplenomegaly; bowel sounds are present in all four quadrants. EXTREMITIES: No clubbing, cyanosis, or edema. SKIN: Normal; no rash; no jaundice. 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 ST consulted and recommended pureed diet. There was paucity of information from pt, she is not talking. I was able to get this much from her " food feels stuck in my throat and not going down, on going for weeks". Initially refused EGD, but later agreed to think about it. Not able to obtain any further information. wasn't present in the room. - Severe worsening depression to the point where she hasn't been eating, getting out of bed or talking. - significant for HTN, CVA 2, ICH, hypothyroidism, arthritis, epilepsy, anxiety , and depression per attending Plan: - Pureed diet - Cont. ST - Will reassess tomorrow, pt would like to think about having EGD done - Supportive care - Patient seen and examined by Dr. Hedrick and myself and this note is written on his behalf. (Shane Martins) Physician Comments Patient seen and examined Agree with above Continue with current supportive care Monitor labs in the room I did discuss with the patient and the the need to pursue an EGD with possible dilation and they are both now agreeable Plan for an EGD on Saturday (Laureano Hedrick MD) Shane Martins Sep 07, 2017 13:20 Laureano Hedrick MD Sep 07, 2017 22:09
[2017-09-07 17:00] VITALS: BP 147/65; PULSE 65; RESP 14; TEMP 98.2; O2SAT 97
[2017-09-07] MEDS: PRIMIDONE 50 MG TAB PO SCH (21:01)
[2017-09-07] MEDS: traZODone HCL 100 MG TAB PO SCH (21:02)
[2017-09-07] MEDS: ACETAMINOPHEN/HYDROcodone 325 MG/5 MG TAB PO PRN (21:24)
[2017-09-08 05:14] VITALS: BP 134/64; PULSE 58; RESP 16; TEMP 97.3; O2SAT 96
[2017-09-08] MEDS: LEVOTHYROXINE SODIUM 150 MCG TAB PO SCH (05:21)
[2017-09-08] MEDS: ALPRAZolam 1 MG TAB PO SCH ×3 (05:21→20:35)
[2017-09-08] MEDS ORDERED: PILL SPLITTER OTHER PRN (08:45)
--- NOTE | 2017-09-08 09:46 | HHI.PR ---
Subjective Remarks The patient said that she was not feeling very well. She said she was too weak to ambulate. Nursing reports that she skipped her breakfast. She was unable to elaborate further on her symptoms. Objective Vitals Vital Signs Date Time Temp Pulse Resp B/P (MAP) Pulse Ox O2 Delivery O2 Flow Rate FiO2 09/08/17 05:14 97.3 58 16 134/64 (87) 96 09/07/17 17:00 98.2 65 14 147/65 (92) 97 I/O 09/07/17 09/07/17 09/07/17 09/08/17 09/08/17 09/08/17 07:00 15:00 23:00 07:00 15:00 23:00 Intake Total 120 ml 0 ml 840 ml 0 ml Balance 120 ml 0 ml 840 ml 0 ml Intake Oral 120 ml 0 ml 840 ml 0 ml # Voids 4 2 2 # Bowel Movements 2 1 1 Result Diagram: 09/06/17 1233 09/07/17 1158 Imaging Last Impressions Brain MRI 09/04/17 0000 Signed Impressions: Service Date/Time: Monday, September 04, 2017 17:45 - CONCLUSION: 1. No acute intracranial abnormality. 2. Small chronic bilateral basal ganglia lacunar infarctions. Enrique Obrien Jr., MD Head CT 09/03/17 0000 Signed Impressions: Service Date/Time: Sunday, September 03, 2017 15:01 - CONCLUSION: Subcentimeter area of low density at the knee of the internal capsule left basal ganglia which may represent an interim lacunar infarct. Otherwise negative Ilia Bender MD Objective Remarks GENERAL: Frail, elderly lady. SKIN: Warm and dry. Pale. HEENT: Normocephalic. Pupils equal round and reactive. Nose without bleeding. Airway patent. NECK: Trachea midline. CARDIOVASCULAR: Regular rate and rhythm without murmurs, gallops, or rubs. RESPIRATORY: Clear to auscultation. Breath sounds equal bilaterally. No wheezes , rales, or rhonchi. GASTROINTESTINAL: Abdomen soft, slightly tender in the lower quadrants, nondistended. Bowel Sounds normoactive x4. MUSCULOSKELETAL: Extremities without clubbing, cyanosis, or edema. NEUROLOGICAL: Lethargic. Oriented to person, place. Moves all extremities. Slow speech. PSYCH: Flat affect. Medications and IVs Current Medications Medications (Trade) Dose Ordered Sig/Jaxon Route Start Time Stop Time Status Last Admin (Tylenol) 650 mg Q4H PRN PO 09/03/17 18:45 (Milk Of Magnesia Liq) 30 ml DAILY PRN PO 09/03/17 18:45 09/05/17 18:24 (Mag-Al Plus Susp Liq) 30 ml Q6H PRN PO 09/03/17 18:45 (Norvasc) 5 mg DAILY PO 09/04/17 09:00 09/06/17 10:24 (Catapres) 0.1 mg BID PO 09/03/17 21:00 09/07/17 21:02 (Trandate) 200 mg BID PO 09/03/17 21:00 09/07/17 21:02 (Synthroid) 150 mcg DAILY@0600 PO 09/04/17 06:00 09/08/17 05:21 (Claritin) 10 mg DAILY PO 09/04/17 09:00 09/06/17 10:20 (Mysoline) 50 mg HS PO 09/03/17 21:00 09/07/17 21:01 Patient Own Medication PT OWN MED: Cromo... QID EACH EYE 09/03/17 21:00 Future Hold (Xanax) 1 mg Q8HR PO 09/03/17 22:00 09/08/17 05:21 (Lipitor) 20 mg DAILY PO 09/05/17 13:15 09/06/17 10:19 (Paxil) 30 mg DAILY PO 09/06/17 09:00 09/07/17 10:01 ([place] 5-325 Mg) 1 tab Q6H PRN PO 09/06/17 11:30 09/07/17 21:24 (Lovenox Inj) 30 mg Q24H SQ 09/07/17 10:00 (Desyrel) 100 mg HS PO 09/07/17 21:00 09/07/17 21:02 (Pill Splitter) 1 ea UNSCH PRN OTHER 09/08/17 08:45 A/P Problem List: (1) HTN (hypertension) ICD Code: I10 - Essential (primary) hypertension (2) CVA (cerebral vascular accident) ICD Code: I63.9 - Cerebral infarction, unspecified (3) Hypothyroidism ICD Code: E03.9 - Hypothyroidism, unspecified (4) Arthritis ICD Code: M19.90 - Unspecified osteoarthritis, unspecified site (5) Depression with anxiety ICD Code: F41.8 - Other specified anxiety disorders (6) UTI (lower urinary tract infection) ICD Code: N39.0 - Lower urinary tract infectious disease Status: Acute Assessment and Plan Anxiety and depression The pt appears anhedonic. - Management per primary team Encephalopathy/ CVA history CT scan done 09/03/17 reviewed, subcentimeter area of low density at the knee of the internal capsule left basal ganglia which may represent an interim lacunar infarct. Otherwise negative CT. MRI showed 1. No acute intracranial abnormality. 2. Small chronic bilateral basal ganglia lacunar infarctions. Patient with generalized weakness bilaterally, no noted facial droop. TSH normal and ammonia level low. - Elevated lipid profile, will start atorvastatin 20 mg. - PT/ OT. PT requested 7 days a week. Dysphagia Complains of difficulty swallowing. Speech evaluation done. Recommends pured thin liquids. GI consult appreciated. - EGD planned 09/09 per GI. HTN Well controlled at this time. - Labetalol decreased to 100 mg twice a day, Norvasc 5 mg daily, clonidine 0.1 mg twice a day. Epilepsy Patient reports last seizure 3 years ago. - Resume home dose of Primidone 50 mg at bedtime - Monitor for seizure activity closely due to recent taper from benzodiazepines. Patient has been on Xanax and completely stopped. Restarted on Xanax every 8 hours but psychiatry has plan to taper dose. Arthritis/chronic pain The pt has been lethargic. - hold pain meds when lethargic. Hypothyroidism TSH checked 2.07. - Resume levothyroxine 150 MCG's daily. PPx: Lovenox Problem Qualifiers (1) HTN (hypertension): Qualified Codes: I10 - Essential (primary) hypertension (2) CVA (cerebral vascular accident): Qualified Codes: I63.9 - Cerebral infarction, unspecified (3) Hypothyroidism: Qualified Codes: E03.9 - Hypothyroidism, unspecified Luciano Almaraz DO Sep 08, 2017 09:46
[2017-09-08] MEDS: cloNIDine HCL 0.1 MG TAB PO SCH ×2 (10:42→20:34)
[2017-09-08] MEDS: ATORVASTATIN 20 MG TAB PO SCH (10:43)
[2017-09-08] MEDS: LORATADINE 10 MG TAB PO SCH (10:43)
[2017-09-08] MEDS: amLODIPine BESYLATE 5 MG TAB PO SCH (10:43)
[2017-09-08] MEDS: PARoxetine HCL 20 MG TAB PO SCH (10:44)
[2017-09-08] MEDS: ENOXAPARIN SODIUM 30 MG/0.3 ML SYRINGE SQ SCH (10:54)
[2017-09-08] MEDS: LABETALOL HCL 200 MG TAB PO SCH ×2 (10:56→20:35)
--- NOTE | 2017-09-08 12:03 | HHI.PYPN ---
Subjective Remarks Patient was seen today for psychiatric reevaluation. Patient continues to show symptomatology of severe depression. She is very guarded, distant, objectively sad, with marked psychomotor retardation, she reports poor sleep, poor appetite , poor level of concentration, lack of motivation. She reports suicidal thoughts, but denies plan. Denies visual and auditory hallucinations. She has been taking her medications on and off. I encouraged her to take her medications and try to go out today to walk and take fresh air. The patient is fully oriented 3, no fluctuation of consciousness, no attention deficit. Patient has been isolated, seclusive in her room, interacting very poorly with staff. Mental Status Examination Appearance: Disheveled Consciousness: Alert Orientation: Person Motor Activity: Abnormal gait Speech: Hesitant, Slow, Other Language: Other Fund of Knowledge: Inadequate Attention and Concentration: Inadequate Memory: Impaired Mood: Sad Affect: Sad, Flat Thought Process & Associations: Intact, Linear Thought Content: Other Hallucination Type: None Delusion Type: None Suicidal Ideation: Yes (denies today) Suicidal Plan: No Suicidal Intention: No Homicidal Ideation: No Homicidal Plan: No Homicidal Intention: No Insight: Poor Judgment: Poor Results Labs Date/Time Source Procedure Growth Status 09/07/17 00:50 Stool Stool Stool Occult Blood (NANDINI) - Final HEMOCCULT NEGATIVE Complete 09/03/17 15:30 Urine Catheterized Urine Urine Culture - Final NO GROWTH IN 48 HOURS. Complete Vitals/IOs Vital Signs Date Time Temp Pulse Resp B/P (MAP) Pulse Ox O2 Delivery O2 Flow Rate FiO2 09/08/17 05:14 97.3 58 16 134/64 (87) 96 Intake and Output 09/08/17 09/08/17 09/09/17 08:00 16:00 00:00 Intake Total 0 ml Balance 0 ml Assessment & Plan Problem List: (1) Severe recurrent major depression without psychotic features ICD Codes: F33.2 - Major depressive disorder, recurrent severe without psychotic features Assessment & Plan: Patient continues to be severely depressed, brief supportive psychotherapy motivation provided. Continue current psychotropics. Assessment & Plan Estimated LOS: days Justification for Cont. Inpt. Patient has an elevated risk of danger to herself at a lower level of care. Vernon Charlton MD Sep 08, 2017 12:03
[2017-09-08] MEDS: ACETAMINOPHEN/HYDROcodone 325 MG/5 MG TAB PO PRN ×2 (14:30→20:35)
[2017-09-08 17:25] VITALS: BP 117/77; PULSE 58; RESP 16; TEMP 97.4; O2SAT 93
[2017-09-08] MEDS: traZODone HCL 100 MG TAB PO SCH (20:34)
[2017-09-08] MEDS: PRIMIDONE 50 MG TAB PO SCH (20:35)
--- NOTE | 2017-09-08 21:35 | HHI.GIFU ---
Subjective Remarks Patient comfortable in bed no new complaints Objective Vitals I&O Vital Signs Date Time Temp Pulse Resp B/P (MAP) Pulse Ox O2 Delivery O2 Flow Rate FiO2 09/08/17 17:25 97.4 58 16 117/77 (90) 93 09/08/17 05:14 97.3 58 16 134/64 (87) 96 I/O 09/07/17 09/07/17 09/07/17 09/08/17 09/08/17 09/08/17 06:59 14:59 22:59 06:59 14:59 22:59 Intake Total 360 ml 0 ml 600 ml 240 ml 0 ml 240 ml Balance 360 ml 0 ml 600 ml 240 ml 0 ml 240 ml Intake Oral 360 ml 0 ml 600 ml 240 ml 0 ml 240 ml # Voids 4 2 2 1 # Bowel Movements 2 1 1 Laboratory Date/Time Source Procedure Growth Status 09/07/17 00:50 Stool Stool Stool Occult Blood (NANDINI) - Final HEMOCCULT NEGATIVE Complete 09/03/17 15:30 Urine Catheterized Urine Urine Culture - Final NO GROWTH IN 48 HOURS. Complete Physical Exam HEENT: normocephalic; atraumatic; no jaundice. Throat is clear. NECK: Neck is supple, no JVD, CHEST: Chest is clear to auscultation and percussion. CARDIAC: Regular rate and rhythm with no murmur gallop or rubs. ABDOMEN: Soft, nondistended, nontender; no hepatosplenomegaly; bowel sounds are present in all four quadrants. EXTREMITIES: No clubbing, cyanosis, or edema. SKIN: Normal; no rash; no jaundice. LIFE ADVISOR: No focal deficits; alert and oriented times three. Assessment and Plan Plan - Dysphagia- GI have been consulted for dysphagia. ST consulted and recommended pureed diet. There was paucity of information from pt, she is not talking. I was able to get this much from her " food feels stuck in my throat and not going down, on going for weeks". Initially refused EGD, but later agreed to think about it. Not able to obtain any further information. wasn't present in the room. - Severe worsening depression to the point where she hasn't been eating, getting out of bed or talking. - significant for HTN, CVA 2, ICH, hypothyroidism, arthritis, epilepsy, anxiety , and depression per attending Plan: - Pureed diet - Cont. ST -EGD tomorrow with possible dilation - Supportive care Laureano Hedrick MD Sep 08, 2017 21:35
[2017-09-09 04:34] VITALS: BP 125/61; PULSE 59; RESP 17; TEMP 97.6; O2SAT 93
[2017-09-09] MEDS: LEVOTHYROXINE SODIUM 150 MCG TAB PO SCH (06:00)
[2017-09-09] MEDS: ALPRAZolam 1 MG TAB PO SCH (06:00)
[2017-09-09] MEDS: cloNIDine HCL 0.1 MG TAB PO SCH ×2 (09:00→20:44)
[2017-09-09] MEDS: LABETALOL HCL 200 MG TAB PO SCH ×2 (09:00→20:45)
[2017-09-09] MEDS: amLODIPine BESYLATE 5 MG TAB PO SCH (09:00)
[2017-09-09] MEDS: LORATADINE 10 MG TAB PO SCH (09:00)
[2017-09-09] MEDS: PARoxetine HCL 20 MG TAB PO SCH (09:00)
[2017-09-09] MEDS: ATORVASTATIN 20 MG TAB PO SCH (09:00)
--- NOTE | 2017-09-09 10:04 | HHI.PR ---
Subjective Remarks worst pain is behind eye, right is worse has generalized weakness, stated going on for months, but worse since she has been in hospital reports she feels food is stuck when she eats, but no pain denies muscle pain, but has "pain everywhere,and behind eye is worse" usually takes cromolyn drops twice a day for allergies - not getting it here- NF - and does not want someone to bring from home Objective Vitals Vital Signs Date Time Temp Pulse Resp B/P (MAP) Pulse Ox O2 Delivery O2 Flow Rate FiO2 09/09/17 04:34 97.6 59 17 125/61 (82) 93 09/08/17 17:25 97.4 58 16 117/77 (90) 93 I/O 09/08/17 09/08/17 09/08/17 09/09/17 09/09/17 09/09/17 07:00 15:00 23:00 07:00 15:00 23:00 Intake Total 0 ml 480 ml Output Total 2 ml Balance 0 ml 480 ml -2 ml Intake Oral 0 ml 480 ml Output Urine Total 2 ml # Voids 2 1 1 2 # Bowel Movements 1 1 0 Result Diagram: 09/06/17 1233 09/07/17 1158 Objective Remarks awake, alert, anhedonic , thin pleasant elderly lady skin - senile skin , normal temp heart rate regular, no murmur appreciated lung sounds are decreased, poor inspiratory effort, no wheezing or rales abdomen is soft, non tender, no rebound, no guarding extremities- no calf asymmetry or edema neuro- awake, alert, oriented, normal speech, no focal deficit A/P Problem List: (1) HTN (hypertension) ICD Code: I10 - Essential (primary) hypertension (2) CVA (cerebral vascular accident) ICD Code: I63.9 - Cerebral infarction, unspecified (3) Hypothyroidism ICD Code: E03.9 - Hypothyroidism, unspecified (4) Arthritis ICD Code: M19.90 - Unspecified osteoarthritis, unspecified site (5) Depression with anxiety ICD Code: F41.8 - Other specified anxiety disorders (6) UTI (lower urinary tract infection) ICD Code: N39.0 - Lower urinary tract infectious disease Status: Acute Assessment and Plan 1) dysphagia 2) encephalopathy- resolved, mostly severe depression 3) hx of seizures 4) hypothyroidism on synthroid 5) HTN controlled on med cpk as pt is on statins and weakness lft egd today lovenox on hold- will resume post egd will check with pharmacy on similar eye drops xanax is being tapered by psychiatry, watch for withdrawal- but is very slow taper, not expecting problems dvt prophylaxis on lovenox- to resume post egd Discharge Planning patient, nursing staff Problem Qualifiers (1) HTN (hypertension): Qualified Codes: I10 - Essential (primary) hypertension (2) CVA (cerebral vascular accident): Qualified Codes: I63.9 - Cerebral infarction, unspecified (3) Hypothyroidism: Qualified Codes: E03.9 - Hypothyroidism, unspecified Rosina Hall MD Sep 09, 2017 10:04
[2017-09-09 10:22] LABS: ALBUMIN 2.9 GM/DL (3.4-5.0); BICARBONATE 31.1 MEQ/L (21.0-32.0); CALCIUM 8.4 MG/DL (8.5-10.1); CREATININE 0.81 MG/DL (0.50-1.00); DIRECT BILIRUBIN ADULT 0.1 MG/DL (0.0-0.2); MAGNESIUM 2.1 MG/DL (1.5-2.5)
[2017-09-09 10:25] LABS: INDIRECT BILIRUBIN 0.2 MG/DL (0.0-0.8); TOTAL BILIRUBIN ADULT 0.3 MG/DL (0.2-1.0)
[2017-09-09] MEDS ORDERED: LIDOCAINE HCL 1% PF 5 ML SYRINGE OTHER ONE (12:00)
[2017-09-09] MEDS ORDERED: PROPOFOL 200 MG/20 ML AMP IV ONE (12:00)
[2017-09-09] MEDS: ALPRAZolam 0.5 MG TAB PO SCH ×2 (14:00→20:46)
[2017-09-09] MEDS ORDERED: SODIUM CHLORID 0.9% 500 ML IV PRN (14:45)
[2017-09-09] MEDS ORDERED: CHLORHEXIDINE GLUCONATE 2 % 1 PACK (2 CLOTHS) TOPICAL PRN (14:45)
[2017-09-09] MEDS ORDERED: POVIDONE IODINE 5% (ANTISEPSIS KIT) 4 APPLICATIONS EACH NARE PRN (14:45)
[2017-09-09] MEDS ORDERED: LACTATED RINGER'S 1000 ML IV PRN (14:45)
--- NOTE | 2017-09-09 15:06 | HHI.PYPN ---
Subjective Remarks Patient seen for follow-up, chart reviewed. Discussion of staff reported the patient continues to require encouragement and assistance for ADLs our continues to have inadequate food intake. EGD scheduled for today.. Patient is found lying in hospital bed noted to continue with psychomotor retardation and speech latency. Patient states that she has been feeling "not good" and that the weekend has been no difference. She continues report feeling depressed , 10 out of 10 (10 being its worst), patient denies having any thoughts of not wanting to be alive but states that she is "feels like I'm dying". Patient states that she and having some noted difficulty with expressing her thoughts recently for the past couple of weeks. Patient continues to endorse difficulty with swallowing and is aware that she will be having a EGD done today. Patient denies any perceptual disturbances or delusions at this time. Review of Systems Except as stated in HPI: all other systems reviewed are Neg Mental Status Examination Appearance: Disheveled Consciousness: Alert Orientation: Person Motor Activity: Abnormal gait Speech: Hesitant, Slow, Other Language: Other Fund of Knowledge: Inadequate Attention and Concentration: Inadequate Memory: Impaired Mood: Sad Affect: Sad, Flat Thought Process & Associations: Intact, Linear Thought Content: Other Hallucination Type: None Delusion Type: None Suicidal Ideation: Yes (thoughts of not wanting to be alive, denies active thoughts of wanting to end her life.) Suicidal Plan: No Suicidal Intention: No Homicidal Ideation: No Homicidal Plan: No Homicidal Intention: No Insight: Poor Judgment: Poor Results Labs labs reviewed Test 09/09/17 08:10 Blood Urea Nitrogen 10 MG/DL Creatinine 0.81 MG/DL Random Glucose 78 MG/DL Total Protein 6.0 GM/DL Albumin 2.9 GM/DL Calcium Level 8.4 MG/DL Magnesium Level 2.1 MG/DL Alkaline Phosphatase 70 U/L Aspartate Amino Transf (AST/SGOT) 13 U/L Alanine Aminotransferase (ALT/SGPT) 16 U/L Total Bilirubin 0.3 MG/DL Direct Bilirubin 0.1 MG/DL Sodium Level 139 MEQ/L Potassium Level 3.8 MEQ/L Chloride Level 101 MEQ/L Carbon Dioxide Level 31.1 MEQ/L Anion Gap 7 MEQ/L Estimat Glomerular Filtration Rate 70 ML/MIN Indirect Bilirubin 0.2 MG/DL Total Creatine Kinase 21 U/L Date/Time Source Procedure Growth Status 09/07/17 00:50 Stool Stool Stool Occult Blood (NANDINI) - Final HEMOCCULT NEGATIVE Complete 09/03/17 15:30 Urine Catheterized Urine Urine Culture - Final NO GROWTH IN 48 HOURS. Complete Vitals/IOs Vital Signs Date Time Temp Pulse Resp B/P (MAP) Pulse Ox O2 Delivery O2 Flow Rate FiO2 09/09/17 04:34 97.6 59 17 125/61 (82) 93 Intake and Output 09/09/17 09/09/17 09/09/17 07:59 15:59 23:59 Output Total 2 ml Balance -2 ml Assessment & Plan Problem List: (1) Severe recurrent major depression without psychotic features ICD Codes: F33.2 - Major depressive disorder, recurrent severe without psychotic features Assessment & Plan Patient at this time continues to be noted to be very depressed, with no motivation or effort to improve his ambulation or by mouth intake required much encouragement as well as assistance for ADLs. We'll add mirtazapine as an augmenting agent for depression 15 mg by mouth at bedtime and decrease trazodone to 50 mg daily at bedtime. Decrease Alprazolam 0.75mg PO TID with plan to continue taper. EGD done today, continue recommendations as per primary medical team. Continue to assist patient with ADLs. Continue with PT and OT. Discharge planning in progress. Justification for Cont. Inpt. At risk for further decompensation if at lower level of care Discharge Planning To residence once medically/psychiatrically stable. Vamshi Hatch MD Sep 09, 2017 15:06
--- NOTE | 2017-09-09 15:19 | GIPROC ---
[facility] [address] [facility]. [facility], [address] EGD PROCEDURE REPORT EXAM DATE: 09/09/2017 PATIENT NAME: Lois Pearson MR #: [id number] BIRTHDATE: 1945 ATTENDING: Orlin Dozier MD ORDER #: [id number] PROOF MACHINE OPERATOR: Kelvin Barton and Krupa Jones STATUS: inpatient INDICATIONS: The patient is a 72 yr old female here for an EGD due to dysphagia PROCEDURE PERFORMED: EGD w/ biopsy EGD w/ dilation of esophagus via guidewire MEDICATIONS: None and Per Anesthesia. TOPICAL ANESTHETIC: CONSENT: The patient understands the risks and benefits of the procedure and understands that these risks include, but are not limited to: sedation, allergic reaction, infection, perforation and/or bleeding. Alternative means of evaluation and treatment include, among others: physical exam, x-rays, and/or surgical intervention. The patient elects to proceed with this endoscopic procedure. medical equipment was checked for proper function. Hand hygiene and appropriate measures for infection prevention was taken. After the risks, benefits and alternatives of the procedure were thoroughly explained, Informed consent was verified, confirmed and timeout was successfully executed by the treatment team. The patient was anesthetized with topical anesthesia and the Pentax EG-[id number] endoscope was introduced through the mouth and advanced to the second portion of the duodenum. Retroflexed views revealed no abnormalities The gastroscope was then slowly withdrawn and removed. 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 The stricture was easily traversable. A biopsy was performed using cold forceps. Sample sent for histology. The stricture was dilated using a 15mm (45Fr) savary dilator over guidewire. STOMACH: There was erythematous moderate gastritis in the gastric antrum. A biopsy was performed using cold forceps. Sample sent for histology. DUODENUM: The duodenal mucosa appeared normal. ADVERSE EVENTS: There were no complications. IMPRESSIONS: 1. There was a short stricture in the distal esophagus; biopsy was performed; The stricture was dilated using a 15mm (45Fr) savary dilator over guidewire 2. There was erythematous gastritis in the gastric antrum; biopsy was performed 3. Normal duodenal mucosa 4. Retroflexed views revealed no abnormalities RECOMMENDATIONS: 1. Await biopsy results. Biopsy results will not be ready for 7-10 days. If you don't hear from us in two weeks, call our office for biopsy results. 2. Anti-reflux regimen 3. Continue PPI PATIENT CONDITION: stable DISPOSITION: Inpatient REPEAT EXAM: Return 1 year EGD pending biopsy results Orlin Dozier MD eSigned: Orlin Dozier MD 09/09/2017 3:19 PM cc:
[2017-09-09 16:30] VITALS: BP 146/63; PULSE 71; RESP 18; TEMP 98.3; O2SAT 98
[2017-09-09] MEDS: PRIMIDONE 50 MG TAB PO SCH (20:44)
[2017-09-09] MEDS: traZODone HCL 100 MG TAB PO SCH (20:44)
[2017-09-10] MEDS: ALPRAZolam 0.5 MG TAB PO SCH ×3 (05:28→21:04)
[2017-09-10] MEDS: LEVOTHYROXINE SODIUM 150 MCG TAB PO SCH (05:30)
[2017-09-10 05:51] VITALS: BP 149/67; PULSE 64; RESP 18; TEMP 98.2; O2SAT 98
[2017-09-10] MEDS: amLODIPine BESYLATE 5 MG TAB PO SCH (09:00)
[2017-09-10] MEDS: ATORVASTATIN 20 MG TAB PO SCH (09:00)
[2017-09-10] MEDS: cloNIDine HCL 0.1 MG TAB PO SCH ×2 (09:00→21:05)
[2017-09-10] MEDS: LORATADINE 10 MG TAB PO SCH (09:00)
[2017-09-10] MEDS: PARoxetine HCL 20 MG TAB PO SCH (09:00)
[2017-09-10] MEDS: LABETALOL HCL 200 MG TAB PO SCH ×2 (09:00→21:05)
--- NOTE | 2017-09-10 09:53 | HHI.PR ---
Subjective Remarks much more awake stated no trouble post procedure was noted drinking ensure shake but still very much with flat affect, states visited her yesterday Objective Vitals Vital Signs Date Time Temp Pulse Resp B/P (MAP) Pulse Ox O2 Delivery O2 Flow Rate FiO2 09/10/17 05:51 98.2 64 18 149/67 (94) 98 09/09/17 16:30 98.3 71 18 146/63 (90) 98 09/09/17 15:30 98.7 79 18 153/61 (91) 95 I/O 09/09/17 09/09/17 09/09/17 09/10/17 09/10/17 09/10/17 07:00 15:00 23:00 07:00 15:00 23:00 Intake Total 0 ml 300 ml 120 ml Output Total 2 ml Balance -2 ml 0 ml 300 ml 120 ml Intake Oral 0 ml 120 ml Other 300 ml Output Urine Total 2 ml # Voids 2 2 5 # Bowel Movements 0 Result Diagram: 09/06/17 1233 09/09/17 0810 A/P Problem List: (1) HTN (hypertension) ICD Code: I10 - Essential (primary) hypertension (2) CVA (cerebral vascular accident) ICD Code: I63.9 - Cerebral infarction, unspecified (3) Hypothyroidism ICD Code: E03.9 - Hypothyroidism, unspecified (4) Arthritis ICD Code: M19.90 - Unspecified osteoarthritis, unspecified site (5) Depression with anxiety ICD Code: F41.8 - Other specified anxiety disorders (6) UTI (lower urinary tract infection) ICD Code: N39.0 - Lower urinary tract infectious disease Status: Acute Assessment and Plan 1) dysphagia 2) encephalopathy resolved 3) hx of seizures 4) htn 5)hypothyroidism cpk as pt is on statins and weakness- normal lft stable egd 09/09/[address] Dozier small stricture was dilated biopsy taken results available in 7-10days- follow up results, or give appointment with GI at discharge will check with pharmacy on similar eye drops xanax is being tapered by psychiatry, watch for withdrawal- but is very slow taper, not expecting problems resume diet resume lovenox need PT 7 days a week Discharge Planning patient, nursing Problem Qualifiers (1) HTN (hypertension): Qualified Codes: I10 - Essential (primary) hypertension (2) CVA (cerebral vascular accident): Qualified Codes: I63.9 - Cerebral infarction, unspecified (3) Hypothyroidism: Qualified Codes: E03.9 - Hypothyroidism, unspecified Rosina Hall MD Sep 10, 2017 09:53
--- NOTE | 2017-09-10 10:45 | HHI.PYPN ---
Subjective Remarks Patient seen for follow-up, chart reviewed. Discussion she staff reported the patient had EGD yesterday without application noted more alert this morning and had worked with physical therapy as well; slept well. Patient was found lying in hospital bed, cooperative noted to be more alertness morning was less speech delay in response. Patient states that she had difficulty sleeping despite nursing report stated that patient slept well and registered 8 hours of sleep as per chart last night. Patient states that she continues to have "bad thoughts racing and reminding" and when asked to elaborate patient states that "something happening to my and other thoughts". Patient states that she continues to feel depressed continues to have vague suicidal ideations but states "I want to live". Patient states she had visited by her yesterday after this procedure and states that he is very supportive. Patient states that she would like to be able to get up and do things but feels that she is physically weak. Review of Systems Except as stated in HPI: all other systems reviewed are Neg Mental Status Examination Appearance: Disheveled Consciousness: Alert Orientation: Person Motor Activity: Abnormal gait Speech: Hesitant, Slow, Other Language: Other Fund of Knowledge: Inadequate Attention and Concentration: Inadequate Memory: Impaired Mood: Sad Affect: Sad, Flat Thought Process & Associations: Intact, Linear Thought Content: Other Hallucination Type: None Delusion Type: None Suicidal Ideation: Yes (denies today) Suicidal Plan: No Suicidal Intention: No Homicidal Ideation: No Homicidal Plan: No Homicidal Intention: No Insight: Poor Judgment: Poor Results Labs Date/Time Source Procedure Growth Status 09/07/17 00:50 Stool Stool Stool Occult Blood (NANDINI) - Final HEMOCCULT NEGATIVE Complete 09/03/17 15:30 Urine Catheterized Urine Urine Culture - Final NO GROWTH IN 48 HOURS. Complete Vitals/IOs Vital Signs Date Time Temp Pulse Resp B/P (MAP) Pulse Ox O2 Delivery O2 Flow Rate FiO2 09/10/17 05:51 98.2 64 18 149/67 (94) 98 Intake and Output 09/10/17 09/10/17 09/11/17 08:00 16:00 00:00 Intake Total 120 ml Balance 120 ml Assessment & Plan Problem List: (1) Severe recurrent major depression without psychotic features ICD Codes: F33.2 - Major depressive disorder, recurrent severe without psychotic features Assessment & Plan Patient at this time continues report feeling depressed along with vague suicidal ideations but endorses wanting to live at the same time. Patient continued to be nothing by mouth since yesterday which will be changed to resume by mouth intake. We'll continue current treatment for now we'll continue Enmanuel patient to maintain adequate by mouth intake as well as continue with PT. Supportive psychotherapy provided. Patient continues to have decreased appetite after resuming by mouth intake status post EGD, we'll add mirtazapine as an adjunct patient continues to have poor appetite and continue his ruminating thoughts. Continue with medications. Continue recognition as per primary medical team. Discharge planning in progress Justification for Cont. Inpt. At risk for further decompensation if at lower level of care Discharge Planning Patient to return back to her residence once medically and psychiatrically stable Vamshi Hatch MD Sep 10, 2017 10:45
--- NOTE | 2017-09-10 15:51 | HHI.GIFU ---
Subjective Remarks Pt resting in bed. Says she did eat today, denies difficulty swallowing. (Pratima Glass) Objective Vitals I&O Vital Signs Date Time Temp Pulse Resp B/P (MAP) Pulse Ox O2 Delivery O2 Flow Rate FiO2 09/10/17 05:51 98.2 64 18 149/67 (94) 98 09/09/17 16:30 98.3 71 18 146/63 (90) 98 I/O 09/09/17 09/09/17 09/09/17 09/10/17 09/10/17 09/10/17 06:59 14:59 22:59 06:59 14:59 22:59 Intake Total 0 ml 300 ml 120 ml 480 ml Output Total 2 ml Balance -2 ml 0 ml 300 ml 120 ml 480 ml Intake Oral 0 ml 120 ml 480 ml Other 300 ml Output Urine Total 2 ml # Voids 2 2 5 2 # Bowel Movements 0 1 Laboratory Date/Time Source Procedure Growth Status 09/07/17 00:50 Stool Stool Stool Occult Blood (NANDINI) - Final HEMOCCULT NEGATIVE Complete 09/03/17 15:30 Urine Catheterized Urine Urine Culture - Final NO GROWTH IN 48 HOURS. Complete Imaging Last Impressions Brain MRI 09/04/17 0000 Signed Impressions: Service Date/Time: Monday, September 04, 2017 17:45 - CONCLUSION: 1. No acute intracranial abnormality. 2. Small chronic bilateral basal ganglia lacunar infarctions. Enrique Obrien Jr., MD Head CT 09/03/17 0000 Signed Impressions: Service Date/Time: Sunday, September 03, 2017 15:01 - CONCLUSION: Subcentimeter area of low density at the knee of the internal capsule left basal ganglia which may represent an interim lacunar infarct. Otherwise negative Ilia Bender MD Physical Exam HEENT: normocephalic; atraumatic; no jaundice. CHEST: diminished CARDIAC: RRR ABDOMEN: Soft, nondistended, nontender; no hepatosplenomegaly; bowel sounds are present in all four quadrants. EXTREMITIES: No clubbing, cyanosis, or edema. SKIN: Normal; no rash; no jaundice. BREAKFAST COOK: lethargic (Pratima Glass) Assessment and Plan Plan - Dysphagia- GI have been consulted for dysphagia. ST consulted and recommended pureed diet. There was paucity of information from pt, she is not talking. I was able to get this much from her " food feels stuck in my throat and not going down, on going for weeks". limited historian. s/p EGD and dilatation found erythematous gatritis. bx pending - Depression, psych following - significant for HTN, CVA 2, ICH, hypothyroidism, arthritis, epilepsy, anxiety , and depression per attending Plan: - await bx - soft diet - Cont. ST - Supportive care pt seen by myself and Genny and this note is written on his behalf (Pratima Glass) Physician Comments Seen and examined with MOTION PICTURE NARRATOR, doing better after egd with dilation. Biopsies- p. Diet as tolerated. Protonix 40mg daily. GI will sign off, reconsult as needed. Thank you (Orlin Dozier MD) Pratima Glass Sep 10, 2017 15:51 Orlin Dozier MD Sep 10, 2017 17:31
[2017-09-10 18:11] VITALS: BP 129/60; PULSE 72; RESP 16; TEMP 98.6; O2SAT 94
[2017-09-10] MEDS: PRIMIDONE 50 MG TAB PO SCH (21:00)
[2017-09-10] MEDS: MIRTAZAPINE 15 MG TAB PO SCH (21:04)
[2017-09-10] MEDS: traZODone HCL 100 MG TAB PO SCH (21:05)
[2017-09-11] MEDS: LEVOTHYROXINE SODIUM 150 MCG TAB PO SCH (05:26)
[2017-09-11] MEDS: ALPRAZolam 0.5 MG TAB PO SCH ×3 (05:26→20:59)
[2017-09-11 05:53] VITALS: BP 165/70; PULSE 65; RESP 16; TEMP 97.3; O2SAT 95
[2017-09-11] MEDS: LABETALOL HCL 200 MG TAB PO SCH ×2 (09:00→20:59)
[2017-09-11] MEDS: ATORVASTATIN 20 MG TAB PO SCH (10:22)
[2017-09-11] MEDS: PARoxetine HCL 20 MG TAB PO SCH (10:22)
[2017-09-11] MEDS: amLODIPine BESYLATE 5 MG TAB PO SCH (10:23)
[2017-09-11] MEDS: LORATADINE 10 MG TAB PO SCH (10:23)
[2017-09-11] MEDS: cloNIDine HCL 0.1 MG TAB PO SCH ×2 (10:23→20:59)
--- NOTE | 2017-09-11 10:50 | HHI.PR ---
Subjective Remarks sleeping per staff, she is not much different,still very depressed better swallowing Objective Vitals Vital Signs Date Time Temp Pulse Resp B/P (MAP) Pulse Ox O2 Delivery O2 Flow Rate FiO2 09/11/17 05:53 97.3 65 16 165/70 (101) 95 09/10/17 18:11 98.6 72 16 129/60 (83) 94 I/O 09/10/17 09/10/17 09/10/17 09/11/17 09/11/17 09/11/17 07:00 15:00 23:00 07:00 15:00 23:00 Intake Total 120 ml 480 ml 960 ml 0 ml 120 ml Balance 120 ml 480 ml 960 ml 0 ml 120 ml Intake Oral 120 ml 480 ml 960 ml 0 ml 120 ml # Voids 5 2 1 2 # Bowel Movements 1 Result Diagram: 09/09/17 0810 Objective Remarks mostly sleeping stated she finally was able to sleep last night no acute issues per her and nursing lung clear heart rate regular, no murmur abdomen is soft and non tender no calf asymmetry or edema or pain A/P Problem List: (1) HTN (hypertension) ICD Code: I10 - Essential (primary) hypertension (2) CVA (cerebral vascular accident) ICD Code: I63.9 - Cerebral infarction, unspecified (3) Hypothyroidism ICD Code: E03.9 - Hypothyroidism, unspecified (4) Arthritis ICD Code: M19.90 - Unspecified osteoarthritis, unspecified site (5) Depression with anxiety ICD Code: F41.8 - Other specified anxiety disorders (6) UTI (lower urinary tract infection) ICD Code: N39.0 - Lower urinary tract infectious disease Status: Acute Assessment and Plan 1) dysphagia 2) encephalopathy- resolved, mostly anhedonic, depressed state , but aaox4 . CT 09/03/17 reviewed 3) htn- controlled 4) hx of seizures 5) arthritis 6) hypothyroidism cpk as pt is on statins and weakness- normal lft stable egd 09/09/[address] Dozier small stricture was dilated biopsy taken results available in 7-10days- follow up results, or give appointment with GI at discharge pt does not want eyedrops now, and stated her eye burning and pain is gone now that she slept xanax is being tapered by psychiatry, watch for withdrawal- but is very slow taper, not expecting problems DVT prophylaxis on lovenox will sign off on the case as pt has no acute medical issues PT 7 days a week really need encouragement to walk and participate in ADLs Discharge Planning patient, nursing staff Problem Qualifiers (1) HTN (hypertension): Qualified Codes: I10 - Essential (primary) hypertension (2) CVA (cerebral vascular accident): Qualified Codes: I63.9 - Cerebral infarction, unspecified (3) Hypothyroidism: Qualified Codes: E03.9 - Hypothyroidism, unspecified Rosina Hall MD Sep 11, 2017 10:50
[2017-09-11] MEDS: ACETAMINOPHEN/HYDROcodone 325 MG/5 MG TAB PO PRN (15:47)
--- NOTE | 2017-09-11 16:35 | HHI.PYPN ---
Subjective Remarks Patient seen for follow-up, chart review. Discussion this time reporting the patient slept well, was working with physical therapy this morning, continue to be noted to be flat, depressed but compliant. Patient also reportedly eating less than 25% of her meals. Patient was found lying in hospital bed, cooperative continue with psychomotor retardation but less intense. Patient states that she is currently feeling "worse" stating that she is continuing having difficulty with eating but reports having eaten a yogurt and some fluids was having difficulty eating eggs. Patient denies having previous ECT treatments in the past but did report having a similar episode of depression such as this years ago but states that it is worse this time. Patient states she has supported by her continues to want to live but feels that she is having difficulty participating in physical activity. Patient was encouraged to shower today which patient refused and reluctantly agreed to be out of bed and sitting in chair. Review of Systems Except as stated in HPI: all other systems reviewed are Neg Mental Status Examination Appearance: Disheveled Consciousness: Alert Orientation: Person Motor Activity: Abnormal gait Speech: Hesitant, Slow (less so today), Other Language: Other Fund of Knowledge: Inadequate Attention and Concentration: Inadequate Memory: Impaired Mood: Sad Affect: Sad, Flat Thought Process & Associations: Intact, Linear Thought Content: Other Hallucination Type: None Delusion Type: None Suicidal Ideation: Yes (denies today) Suicidal Plan: No Suicidal Intention: No Homicidal Ideation: No Homicidal Plan: No Homicidal Intention: No Insight: Poor Judgment: Poor Results Labs Date/Time Source Procedure Growth Status 09/07/17 00:50 Stool Stool Stool Occult Blood (NANDINI) - Final HEMOCCULT NEGATIVE Complete 09/03/17 15:30 Urine Catheterized Urine Urine Culture - Final NO GROWTH IN 48 HOURS. Complete Vitals/IOs Vital Signs Date Time Temp Pulse Resp B/P (MAP) Pulse Ox O2 Delivery O2 Flow Rate FiO2 09/11/17 05:53 97.3 65 16 165/70 (101) 95 Intake and Output 09/11/17 09/11/17 09/12/17 08:00 16:00 00:00 Intake Total 0 ml 240 ml Balance 0 ml 240 ml Assessment & Plan Problem List: (1) Severe recurrent major depression without psychotic features ICD Codes: F33.2 - Major depressive disorder, recurrent severe without psychotic features Assessment & Plan Patient at this time continues to be noted to have continued apathy, avolition, continued depressed mood with reluctance with behavioral activation. Patient working with physical therapy but appears unmotivated to participate in treatment plan. We'll increase paroxetine to 40 mg by mouth daily, continue mirtazapine 50 mg by mouth at bedtime Continue rest of medications. Patient to continue with physical therapy. Continue to encourage patient to maintain adequate by mouth intake as well as participated in groups and activities and maintain personal hygiene. Continue recommendations as per primary medical team. The patient continues to have minimal response to current treatment will start petition for ECT treatments. Discharge planning in progress Justification for Cont. Inpt. At risk for further decompensation if at lower level of care Discharge Planning Back to her residence once psychiatrically and medically stable Vamshi Hatch MD Sep 11, 2017 16:35
[2017-09-11 18:19] VITALS: BP 121/59; PULSE 63; RESP 16; TEMP 97.7
[2017-09-11] MEDS: PRIMIDONE 50 MG TAB PO SCH (20:58)
[2017-09-11] MEDS: traZODone HCL 100 MG TAB PO SCH (20:58)
[2017-09-11] MEDS: MIRTAZAPINE 15 MG TAB PO SCH (20:59)
[2017-09-12 05:50] VITALS: BP 135/60; PULSE 66; RESP 17; TEMP 97.4; O2SAT 96
[2017-09-12] MEDS: LEVOTHYROXINE SODIUM 150 MCG TAB PO SCH (06:00)
[2017-09-12] MEDS: cloNIDine HCL 0.1 MG TAB PO SCH ×2 (10:06→20:58)
[2017-09-12] MEDS: LORATADINE 10 MG TAB PO SCH (10:06)
[2017-09-12] MEDS: amLODIPine BESYLATE 5 MG TAB PO SCH (10:07)
[2017-09-12] MEDS: LABETALOL HCL 200 MG TAB PO SCH ×2 (10:07→20:59)
[2017-09-12] MEDS: PARoxetine HCL 20 MG TAB PO SCH (10:07)
[2017-09-12] MEDS: ATORVASTATIN 20 MG TAB PO SCH (10:07)
[2017-09-12] MEDS: ALPRAZolam 0.5 MG TAB PO SCH ×2 (10:07→16:04)
--- NOTE | 2017-09-12 13:24 | HHI.PYPN ---
Subjective Remarks Patient seen for follow-up, chart reviewed. Discussion she staff reported the patient has not had any recent changes but was able to get into hospital chair yesterday for about 2 hours with much encouragement but continues to be poorly. Patient was found lying in hospital bed, cooperative stated that she is feeling "worse" continues report feeling depressed but denying any suicidal ideations. Patient states that she has enjoyed getting into the chair yesterday but continues to have difficulty eating stating "I just can't swallow ". Patient was encouraged to participate getting out of bed as well as showering which patient was reluctant. Review of Systems Except as stated in HPI: all other systems reviewed are Neg Mental Status Examination Appearance: Disheveled Consciousness: Alert Orientation: Person Motor Activity: Abnormal gait Speech: Hesitant, Slow (less so today), Other Language: Other Fund of Knowledge: Inadequate Attention and Concentration: Inadequate Memory: Impaired Mood: Sad Affect: Sad, Flat Thought Process & Associations: Intact, Linear Thought Content: Other Hallucination Type: None Delusion Type: None Suicidal Ideation: Yes (denies today) Suicidal Plan: No Suicidal Intention: No Homicidal Ideation: No Homicidal Plan: No Homicidal Intention: No Insight: Poor Judgment: Poor Results Labs Date/Time Source Procedure Growth Status 09/07/17 00:50 Stool Stool Stool Occult Blood (NANDINI) - Final HEMOCCULT NEGATIVE Complete 09/03/17 15:30 Urine Catheterized Urine Urine Culture - Final NO GROWTH IN 48 HOURS. Complete Vitals/IOs Vital Signs Date Time Temp Pulse Resp B/P (MAP) Pulse Ox O2 Delivery O2 Flow Rate FiO2 09/12/17 05:50 97.4 66 17 135/60 (85) 96 Intake and Output 09/12/17 09/12/17 09/13/17 08:00 16:00 00:00 Intake Total 120 ml Balance 120 ml Assessment & Plan Problem List: (1) Severe recurrent major depression without psychotic features ICD Codes: F33.2 - Major depressive disorder, recurrent severe without psychotic features Assessment & Plan Patient at this time continues to report feeling very depressed and continued to have poor appetite recently had paroxetine increased yesterday. We'll continue to taper alprazolam. Continue rest of medications. Continue encouraging patient to participate in physical activity getting out of bed as well as increased by mouth intake. Patient to continue to work with physical therapy. Continued to have patient assisted with ADLs. Patient taken to mental health Court had retained on a continuance. We'll start paperwork for ECT soon as patient continues to have minimal response to current regimen. Discharge planning in progress Justification for Cont. Inpt. At risk for further decompensation if at lower level of care Discharge Planning Patient return back to her residence when psychiatric stable. Vamshi Hatch MD Sep 12, 2017 13:24
[2017-09-12 19:30] VITALS: BP 156/69; PULSE 68; RESP 16; TEMP 97.6; O2SAT 94
[2017-09-12] MEDS: traZODone HCL 100 MG TAB PO SCH (20:58)
[2017-09-12] MEDS: PRIMIDONE 50 MG TAB PO SCH (20:58)
[2017-09-12] MEDS: MIRTAZAPINE 15 MG TAB PO SCH (20:59)
[2017-09-12] MEDS ORDERED: ALPRAZolam 0.5 MG TAB PO SCH (21:00)
[2017-09-13] MEDS: ACETAMINOPHEN/HYDROcodone 325 MG/5 MG TAB PO PRN (03:07)
[2017-09-13 05:58] VITALS: BP 108/56; PULSE 71; RESP 15; TEMP 97.2; O2SAT 96
[2017-09-13] MEDS: LEVOTHYROXINE SODIUM 150 MCG TAB PO SCH (06:09)
[2017-09-13] MEDS: cloNIDine HCL 0.1 MG TAB PO SCH ×2 (08:12→20:32)
[2017-09-13] MEDS: amLODIPine BESYLATE 5 MG TAB PO SCH (08:12)
[2017-09-13] MEDS: PARoxetine HCL 20 MG TAB PO SCH (08:13)
[2017-09-13] MEDS: ATORVASTATIN 20 MG TAB PO SCH (08:13)
[2017-09-13] MEDS: ALPRAZolam 0.5 MG TAB PO SCH ×2 (08:13→16:00)
[2017-09-13] MEDS: LORATADINE 10 MG TAB PO SCH (08:13)
[2017-09-13] MEDS: LABETALOL HCL 200 MG TAB PO SCH ×2 (08:14→20:33)
--- NOTE | 2017-09-13 12:11 | HHI.PYPN ---
Subjective Remarks Patient seen for follow up; chart reviewed. Discussion with nursing staff reported that patient ate about 25% of tray, continues to be poorly motivated, PT had limited cooperation with patient, continues to be noted to be depressed. Patient was found lying on hospital bed, calm and cooperative. Patient states that she is feeling ""not good" stating that she is feeling worse. She was acknowledged of having made some effort by working physical therapy and provided supportive therapy. She continues to state not eating well and note feeling motivated. She denies any SI, HI, perceptual disturbances or delusions. Review of Systems Except as stated in HPI: all other systems reviewed are Neg Mental Status Examination Appearance: Disheveled Consciousness: Alert Orientation: Person Motor Activity: Abnormal gait Speech: Hesitant, Slow (less so today), Other Language: Other Fund of Knowledge: Inadequate Attention and Concentration: Inadequate Memory: Impaired Mood: Sad Affect: Sad, Flat Thought Process & Associations: Intact, Linear Thought Content: Other Hallucination Type: None Delusion Type: None Suicidal Ideation: Yes (denies today) Suicidal Plan: No Suicidal Intention: No Homicidal Ideation: No Homicidal Plan: No Homicidal Intention: No Insight: Poor Judgment: Poor Results Labs Date/Time Source Procedure Growth Status 09/07/17 00:50 Stool Stool Stool Occult Blood (NANDINI) - Final HEMOCCULT NEGATIVE Complete 09/03/17 15:30 Urine Catheterized Urine Urine Culture - Final NO GROWTH IN 48 HOURS. Complete Vitals/IOs Vital Signs Date Time Temp Pulse Resp B/P (MAP) Pulse Ox O2 Delivery O2 Flow Rate FiO2 09/13/17 05:58 97.2 71 15 108/56 (73) 96 Intake and Output 09/13/17 09/13/17 09/14/17 08:00 16:00 00:00 Intake Total 120 ml Balance 120 ml Assessment & Plan Problem List: (1) Severe recurrent major depression without psychotic features ICD Codes: F33.2 - Major depressive disorder, recurrent severe without psychotic features Assessment & Plan Patient continues to have decreased motivation, poor PO intake, minimal participation with PT, with perceived mood as worsening. Will increase mirtazapine 30mg PO HS and continue to taper alprazolam, continue rest of medications, continue recommendations as per primary medical team, continue to encourage increased PO intake and participation with PT, groups and activities. Patient with minimal response to treatment, there is risk for continued decompensation. Process to obtain ECT in progress. Discharge planning in progress. Justification for Cont. Inpt. At risk for further decompensation at lower level of care. Discharge Planning To be determined Vamshi Hatch MD Sep 13, 2017 12:11
[2017-09-13 20:26] VITALS: BP 132/62; PULSE 88
[2017-09-13] MEDS: traZODone HCL 100 MG TAB PO SCH (20:32)
[2017-09-13] MEDS: MIRTAZAPINE 15 MG TAB PO SCH (20:33)
[2017-09-13] MEDS: ALPRAZolam 0.25 MG TAB PO SCH (20:33)
[2017-09-13] MEDS: PRIMIDONE 50 MG TAB PO SCH (20:33)
[2017-09-14] MEDS: LEVOTHYROXINE SODIUM 150 MCG TAB PO SCH (06:14)
[2017-09-14 06:16] VITALS: BP 148/65; PULSE 69; RESP 16; TEMP 97.6; O2SAT 97
[2017-09-14] MEDS: LABETALOL HCL 200 MG TAB PO SCH ×2 (09:00→20:38)
[2017-09-14] MEDS: LORATADINE 10 MG TAB PO SCH (09:00)
[2017-09-14] MEDS: PARoxetine HCL 20 MG TAB PO SCH (09:00)
[2017-09-14] MEDS: ATORVASTATIN 20 MG TAB PO SCH (09:00)
[2017-09-14] MEDS: cloNIDine HCL 0.1 MG TAB PO SCH ×2 (09:00→20:39)
[2017-09-14] MEDS: ALPRAZolam 0.5 MG TAB PO SCH ×2 (09:00→16:18)
[2017-09-14] MEDS: amLODIPine BESYLATE 5 MG TAB PO SCH (09:00)
--- NOTE | 2017-09-14 13:41 | HHI.PYPN ---
Subjective Remarks Pt seen and discussed with staff. She remains dysphoric and has not gotten out of bed. She refused morning medications adn did not eat breakfast or lunch. Hygiene is poor. She was non cooperative with PT. With much encouragement she did go out for visitation. She is tolerating increase in antidepressant without side effects. Mental Status Examination Appearance: Disheveled Consciousness: Alert Orientation: Person Motor Activity: Abnormal gait Speech: Hesitant, Slow, Other (soft) Language: Other Fund of Knowledge: Inadequate Attention and Concentration: Inadequate Memory: Impaired Mood: Sad (dysphoric) Affect: Sad, Flat Thought Process & Associations: Intact, Linear Thought Content: Other Hallucination Type: None Delusion Type: None Suicidal Ideation: No (denies today) Suicidal Plan: No Suicidal Intention: No Homicidal Ideation: No Homicidal Plan: No Homicidal Intention: No Insight: Poor Judgment: Poor Results Labs Date/Time Source Procedure Growth Status 09/07/17 00:50 Stool Stool Stool Occult Blood (NANDINI) - Final HEMOCCULT NEGATIVE Complete 09/03/17 15:30 Urine Catheterized Urine Urine Culture - Final NO GROWTH IN 48 HOURS. Complete Vitals/IOs Vital Signs Date Time Temp Pulse Resp B/P (MAP) Pulse Ox O2 Delivery O2 Flow Rate FiO2 09/14/17 06:16 97.6 69 16 148/65 (92) 97 Intake and Output 09/14/17 09/14/17 09/15/17 08:00 16:00 00:00 Intake Total 320 ml 0 ml Balance 320 ml 0 ml Assessment & Plan Problem List: (1) Severe recurrent major depression without psychotic features ICD Codes: F33.2 - Major depressive disorder, recurrent severe without psychotic features Assessment & Plan Continue current tx plan. Continue to encourage behavioral activiation. Estimated LOS: days Justification for Cont. Inpt. impairments in self care Gila Maxwell MD Sep 14, 2017 13:41
[2017-09-14 18:00] VITALS: BP 128/69; PULSE 89; RESP 18; TEMP 98.9; O2SAT 96
[2017-09-14] MEDS: ALPRAZolam 0.25 MG TAB PO SCH (20:38)
[2017-09-14] MEDS: PRIMIDONE 50 MG TAB PO SCH (20:38)
[2017-09-14] MEDS: MIRTAZAPINE 15 MG TAB PO SCH (20:38)
[2017-09-14] MEDS: traZODone HCL 100 MG TAB PO SCH (20:39)
[2017-09-15] MEDS: LEVOTHYROXINE SODIUM 150 MCG TAB PO SCH (05:21)
[2017-09-15 06:20] VITALS: BP 134/60; PULSE 73; RESP 17; TEMP 98; O2SAT 97
[2017-09-15] MEDS: PARoxetine HCL 20 MG TAB PO SCH (09:32)
[2017-09-15] MEDS: amLODIPine BESYLATE 5 MG TAB PO SCH (09:33)
[2017-09-15] MEDS: LORATADINE 10 MG TAB PO SCH (09:33)
[2017-09-15] MEDS: LABETALOL HCL 200 MG TAB PO SCH ×2 (09:33→21:00)
[2017-09-15] MEDS: cloNIDine HCL 0.1 MG TAB PO SCH ×2 (09:33→21:00)
[2017-09-15] MEDS: ATORVASTATIN 20 MG TAB PO SCH (09:33)
[2017-09-15] MEDS: ALPRAZolam 0.5 MG TAB PO SCH ×2 (09:39→16:00)
--- NOTE | 2017-09-15 11:37 | HHI.PYPN ---
Subjective Remarks Pt seen and discussed with staff. She remains depressed and dysphoric. Self care is poor but pt did visit with family yesterday. She has been seclusive today and refusing to eat meals (consuming ensure shakes in room) this morning or leave room. Pt states that she can't go out for meals because she will not be able to go to bed. No SI/HI. Mental Status Examination Appearance: Disheveled Consciousness: Alert Orientation: Person Motor Activity: Abnormal gait Speech: Hesitant, Slow, Other (soft) Language: Other Fund of Knowledge: Inadequate Attention and Concentration: Inadequate Memory: Impaired Mood: Sad (dysphoric) Affect: Sad, Flat Thought Process & Associations: Intact, Linear Thought Content: Other Hallucination Type: None Delusion Type: None Suicidal Ideation: No (denies today) Suicidal Plan: No Suicidal Intention: No Homicidal Ideation: No Homicidal Plan: No Homicidal Intention: No Insight: Poor Judgment: Poor Results Labs Date/Time Source Procedure Growth Status 09/07/17 00:50 Stool Stool Stool Occult Blood (NANDINI) - Final HEMOCCULT NEGATIVE Complete 09/03/17 15:30 Urine Catheterized Urine Urine Culture - Final NO GROWTH IN 48 HOURS. Complete Vitals/IOs Vital Signs Date Time Temp Pulse Resp B/P (MAP) Pulse Ox O2 Delivery O2 Flow Rate FiO2 09/15/17 06:20 98.0 73 17 134/60 (84) 97 Intake and Output 09/15/17 09/15/17 09/16/17 08:00 16:00 00:00 Intake Total 240 ml Balance 240 ml Assessment & Plan Problem List: (1) Severe recurrent major depression without psychotic features ICD Codes: F33.2 - Major depressive disorder, recurrent severe without psychotic features Assessment & Plan Continue current tx plan. Estimated LOS: days Justification for Cont. Inpt. impairments in self care Gila Maxwell MD Sep 15, 2017 11:37
[2017-09-15 18:00] VITALS: BP 102/52; PULSE 79; RESP 17; TEMP 99; O2SAT 96
[2017-09-15] MEDS: traZODone HCL 100 MG TAB PO SCH (21:00)
[2017-09-15] MEDS: ALPRAZolam 0.25 MG TAB PO SCH (21:00)
[2017-09-15] MEDS: PRIMIDONE 50 MG TAB PO SCH (21:00)
[2017-09-15] MEDS: MIRTAZAPINE 15 MG TAB PO SCH (21:01)
[2017-09-16 05:45] VITALS: BP 122/57; PULSE 69; RESP 18; TEMP 97.8; O2SAT 97
[2017-09-16] MEDS: LEVOTHYROXINE SODIUM 150 MCG TAB PO SCH (05:55)
[2017-09-16] MEDS: LORATADINE 10 MG TAB PO SCH (08:46)
[2017-09-16] MEDS: ATORVASTATIN 20 MG TAB PO SCH (08:46)
[2017-09-16] MEDS: PARoxetine HCL 20 MG TAB PO SCH (08:46)
[2017-09-16] MEDS: ALPRAZolam 0.5 MG TAB PO SCH ×2 (08:48→16:31)
[2017-09-16] MEDS: cloNIDine HCL 0.1 MG TAB PO SCH ×2 (08:56→20:56)
[2017-09-16] MEDS: amLODIPine BESYLATE 5 MG TAB PO SCH (08:56)
[2017-09-16] MEDS: LABETALOL HCL 200 MG TAB PO SCH ×2 (08:56→20:57)
--- NOTE | 2017-09-16 13:48 | HHI.PYPN ---
Subjective Remarks Seen for follow-up, chart reviewed. Patient seen lying in hospital bed, cooperative today. Patient states that the weekend for her had gone "not good" reports staying more in bed and not being able to get up. Patient states that she does not feel like getting up and continues report feeling very depressed stating she feeling her worst and that she reports having been depressed before but "not like this". Patient denies any active suicidal ideations continues to endorse thoughts of dying. Patient was provided with brief supportive psychotherapy and encouraged participation in improved by mouth nutritional intake as well as participation with physical therapy. Patient states that she is eating "some". Patient continues to have been consistent nutritional intake as well as poor hygiene. Review of Systems Except as stated in HPI: all other systems reviewed are Neg Mental Status Examination Appearance: Disheveled Consciousness: Alert Orientation: Person Motor Activity: Abnormal gait Speech: Hesitant, Slow, Other (soft) Language: Other Fund of Knowledge: Inadequate Attention and Concentration: Inadequate Memory: Impaired Mood: Sad (dysphoric) Affect: Sad, Flat Thought Process & Associations: Intact, Linear Thought Content: Other Hallucination Type: None Delusion Type: None Suicidal Ideation: No (having thoughts of dying) Suicidal Plan: No Suicidal Intention: No Homicidal Ideation: No Homicidal Plan: No Homicidal Intention: No Insight: Poor Judgment: Poor Results Labs Date/Time Source Procedure Growth Status 09/07/17 00:50 Stool Stool Stool Occult Blood (NANDINI) - Final HEMOCCULT NEGATIVE Complete 09/03/17 15:30 Urine Catheterized Urine Urine Culture - Final NO GROWTH IN 48 HOURS. Complete Vitals/IOs Vital Signs Date Time Temp Pulse Resp B/P (MAP) Pulse Ox O2 Delivery O2 Flow Rate FiO2 09/16/17 05:45 97.8 69 18 122/57 (78) 97 Intake and Output 09/16/17 09/16/17 09/17/17 08:00 16:00 00:00 Intake Total 240 ml Balance 240 ml Assessment & Plan Problem List: (1) Severe recurrent major depression without psychotic features ICD Codes: F33.2 - Major depressive disorder, recurrent severe without psychotic features Assessment & Plan Patient this time continues to be very dysphoric, depressed, thoughts of dying, with very poor hygiene along with very poor nutritional intake and with limited participation with physical therapy. There has been minimal improvement in her mood despite treatment regimen monitor medications. We'll increase paroxetine to 50 mg by mouth daily for depression continue mirtazapine 30 mg at bedtime, will continue alprazolam taper, continue rest of medications. Continue to encourage patient to improve her nutrition intake as well as participation with physical therapy in groups and activities. Patient will continue to require assistance for maintenance of person hygiene. Continue recommendations as per primary medical team. Petition requesting court approval for ECT currently in process. Discharge planning in progress Justification for Cont. Inpt. At risk for further decompensation at lower level of care Discharge Planning To be determined Vamshi Hatch MD Sep 16, 2017 13:48
--- NOTE | 2017-09-16 17:30 | PD.TTN ---
Patient Problems 1. Discharge planning 2. Medication compliance 3. Knowledge deficit 4. Lack of coping skills Progress Toward Goals Provider Present: Dr. Sindy Hatch Provider Input: ECT Packet in process of being finalized Psychiatric Counselors Present: Emil Dyson Jr., [facility], Cathryn Acevedo, [facility] Psych Therapist Input: Cathryn took over case and is establishing ECT for patient. Occupational Therapist Input: isolation no group attendance. Emil Dyson Jr, [employer] Sep 16, 2017 17:30
[2017-09-16 18:00] VITALS: BP 131/60; PULSE 89; RESP 20; TEMP 98.4; O2SAT 95
[2017-09-16] MEDS: traZODone HCL 100 MG TAB PO SCH (20:56)
[2017-09-16] MEDS: MIRTAZAPINE 15 MG TAB PO SCH (20:57)
[2017-09-16] MEDS: PRIMIDONE 50 MG TAB PO SCH (21:15)
[2017-09-17 06:02] VITALS: BP 153/63; PULSE 70; RESP 17; TEMP 97.8; O2SAT 96
[2017-09-17] MEDS: LEVOTHYROXINE SODIUM 150 MCG TAB PO SCH (06:21)
[2017-09-17 06:27] VITALS: BP 153/63; PULSE 70; RESP 17; TEMP 97.8; O2SAT 96
[2017-09-17] MEDS: PARoxetine HCL 20 MG TAB PO SCH (08:11)
[2017-09-17] MEDS: cloNIDine HCL 0.1 MG TAB PO SCH ×2 (08:11→21:34)
[2017-09-17] MEDS: amLODIPine BESYLATE 5 MG TAB PO SCH (08:11)
[2017-09-17] MEDS: LORATADINE 10 MG TAB PO SCH (08:11)
[2017-09-17] MEDS: ATORVASTATIN 20 MG TAB PO SCH (08:11)
[2017-09-17] MEDS: LABETALOL HCL 200 MG TAB PO SCH ×2 (09:00→21:35)
[2017-09-17] MEDS: ALPRAZolam 0.5 MG TAB PO SCH ×2 (09:17→21:36)
--- NOTE | 2017-09-17 10:27 | HHI.PYPN ---
Subjective Remarks Patient seen for follow-up, chart reviewed. Discussion with nursing staff reported that the patient continues with poor PO nutritional intake, continues isolating but came out for breakfast (50% today), continues depressed with flat affect. Patient found lying on hospital bed, noted to continue with depressed mood, stating feeling "worse", continues endorsing feeling helpless, hopeless, with thoughts of dying. She states that would like to get better but feels she is getting worse. Patient continues to want to remain isolative, refusing to participate in groups despite encouragement. Review of Systems Except as stated in HPI: all other systems reviewed are Neg Mental Status Examination Appearance: Disheveled Consciousness: Alert Orientation: Person Motor Activity: Abnormal gait Speech: Hesitant, Slow, Other (soft) Language: Other Fund of Knowledge: Inadequate Attention and Concentration: Inadequate Memory: Impaired Mood: Sad (dysphoric) Affect: Sad, Flat Thought Process & Associations: Intact, Linear Thought Content: Preoccupations (about dying), Other Hallucination Type: None Delusion Type: None Suicidal Ideation: No (having thoughts of dying) Suicidal Plan: No Suicidal Intention: No Homicidal Ideation: No Homicidal Plan: No Homicidal Intention: No Insight: Poor Judgment: Poor Results Labs Date/Time Source Procedure Growth Status 09/07/17 00:50 Stool Stool Stool Occult Blood (NANDINI) - Final HEMOCCULT NEGATIVE Complete 09/03/17 15:30 Urine Catheterized Urine Urine Culture - Final NO GROWTH IN 48 HOURS. Complete Vitals/IOs Vital Signs Date Time Temp Pulse Resp B/P (MAP) Pulse Ox O2 Delivery O2 Flow Rate FiO2 09/17/17 06:27 97.8 70 17 153/63 (93) 96 Intake and Output 09/17/17 09/17/17 09/18/17 08:00 16:00 00:00 Intake Total 480 ml 120 ml Balance 480 ml 120 ml Assessment & Plan Problem List: (1) Severe recurrent major depression without psychotic features ICD Codes: F33.2 - Major depressive disorder, recurrent severe without psychotic features Assessment & Plan Patient continues with anhedonia, depressed, continued to feel helpless, hopeless, along with continued thoughts of dying. Continue to taper clonazepam to 0.25 mg daily and 0.5 mg at bedtime, increase mirtazapine 45 mg by mouth at bedtime, continuous medications continue moderate behavior continue to encourage patient maintain personal hygiene and participate in groups and activities while on the unit. Continue to participate in physical therapy. Continue to encourage patient to increase by mouth nutritional intake. Continue recommendations as per primary medical team. Will request second opinion for petition for ECT. Discharge planning in progress Justification for Cont. Inpt. At risk for decompensation at lower level of care Discharge Planning To be determined Vamshi Hatch MD Sep 17, 2017 10:27
[2017-09-17 18:07] VITALS: BP 149/57; PULSE 72; RESP 18; TEMP 98.5; O2SAT 95
[2017-09-17] MEDS: traZODone HCL 100 MG TAB PO SCH (21:34)
[2017-09-17] MEDS: PRIMIDONE 50 MG TAB PO SCH (21:34)
[2017-09-17] MEDS: MIRTAZAPINE 15 MG TAB PO SCH (21:36)
[2017-09-18] MEDS: LEVOTHYROXINE SODIUM 150 MCG TAB PO SCH (05:47)
--- NOTE | 2017-09-18 08:58 | HHI.PYPN ---
Subjective Remarks I have seen and evaluated this patient today for second opinion ECT. Chart was reviewed. The case was also discussed with Dr. Hatch personally. On my psychiatric evaluation today the patient continues to be superficially cooperative, very distant, melancholic, psychomotor retarded, minimally engageable in a conversation. She has a marked poverty of speech and fragmented thought processes, she says that she feels the same, complaining of sleeping poorly at night, "no more than 2 or 3 hours". Patient shows lack of emotions, flat affect, poor motivation. She reports that she doesn't have any appetite, "even though I try to eat". She says that she prefers to go back home "I just want to there". The patient has been taking her medications, with very poor response, no significant side effects. On a brief physical exam , no stiffness, no echophenomena, no waxy flexibility, tremors or lack of spontaneity noted. Review of Systems Psychiatric: COMPLAINS OF: Depression, Suicidal Ideation Except as stated in HPI: all other systems reviewed are Neg Mental Status Examination Appearance: Disheveled Consciousness: Alert Orientation: Person, Place, Date/Time Motor Activity: Abnormal gait Speech: Hesitant, Slow, Other (soft) Language: Other Fund of Knowledge: Inadequate Attention and Concentration: Inadequate Memory: Impaired Mood: Sad (dysphoric) Affect: Sad, Flat Thought Process & Associations: Intact, Linear Thought Content: Preoccupations (about dying), Other Hallucination Type: None Delusion Type: None Suicidal Ideation: No (having thoughts of dying) Suicidal Plan: No Suicidal Intention: No Homicidal Ideation: No Homicidal Plan: No Homicidal Intention: No Insight: Poor Judgment: Poor Results Labs Date/Time Source Procedure Growth Status 09/07/17 00:50 Stool Stool Stool Occult Blood (NANDINI) - Final HEMOCCULT NEGATIVE Complete 09/03/17 15:30 Urine Catheterized Urine Urine Culture - Final NO GROWTH IN 48 HOURS. Complete Vitals/IOs Vital Signs Date Time Temp Pulse Resp B/P (MAP) Pulse Ox O2 Delivery O2 Flow Rate FiO2 09/17/17 18:07 98.5 72 18 149/57 (87) 95 Assessment & Plan Problem List: (1) Severe recurrent major depression without psychotic features ICD Codes: F33.2 - Major depressive disorder, recurrent severe without psychotic features Assessment & Plan: On my psychiatric evaluation I find the patient is persistently melancholic, I evaluated her for second opinion on her admission, there is not much improvement since then despite of aggressive antidepressant/ daily psychotherapy. The patient continues to be very melancholy, with marked neurovegetative symptoms of depression including poor sleep, poor appetite, weight loss, psychomotor retardation, flat affect, decreased level of energy, lack of motivation. Patient also has been continuously expressing desire to . The patient has been rapidly deteriorating physically, continues to have suicidal thoughts, her depressive symptoms have been refractory to more than 2 antidepressants now, I agree with Dr. Hatch that this patient is strongly benefit of ECT therapy. Assessment & Plan Estimated LOS: days Justification for Cont. Inpt. Patient is to continue psychiatric hospitalization for stabilization. Agree with ECT therapy. Vernon Charlton MD Sep 18, 2017 08:58
[2017-09-18] MEDS: ATORVASTATIN 20 MG TAB PO SCH (09:10)
[2017-09-18] MEDS: cloNIDine HCL 0.1 MG TAB PO SCH ×2 (09:10→20:38)
[2017-09-18] MEDS: PARoxetine HCL 20 MG TAB PO SCH (09:10)
[2017-09-18] MEDS: LABETALOL HCL 200 MG TAB PO SCH ×2 (09:10→20:38)
[2017-09-18] MEDS: ALPRAZolam 0.25 MG TAB PO SCH (09:10)
[2017-09-18] MEDS: LORATADINE 10 MG TAB PO SCH (09:10)
[2017-09-18] MEDS: amLODIPine BESYLATE 5 MG TAB PO SCH (09:10)
--- NOTE | 2017-09-18 12:56 | HHI.PYPN ---
Subjective Remarks Patient seen for follow-up, chart reviewed. Discussion she staff reported patient continues report feeling depressed although noted to be slightly a little more now. Patient was found lying in hospital bed, cooperative. Patient states that she is feeling "worse" but did state that she has been eating much. Patient reports having tried to go into the day room breakfast and couple of hours yesterday continues to want to remain isolative. Remains hopeless and hopeless along with thoughts of not wanting to be alive. Patient aware that she will present for mental health court tomorrow for treatment for ECT. Review of Systems Except as stated in HPI: all other systems reviewed are Neg Mental Status Examination Appearance: Disheveled Consciousness: Alert Orientation: Person, Place, Date/Time Motor Activity: Abnormal gait Speech: Hesitant, Slow, Other (soft) Language: Other Fund of Knowledge: Inadequate Attention and Concentration: Inadequate Memory: Impaired Mood: Sad (dysphoric) Affect: Sad, Flat Thought Process & Associations: Intact, Linear Thought Content: Preoccupations (about dying), Other Hallucination Type: None Delusion Type: None Suicidal Ideation: No (having thoughts of dying) Suicidal Plan: No Suicidal Intention: No Homicidal Ideation: No Homicidal Plan: No Homicidal Intention: No Insight: Poor Judgment: Poor Results Labs Date/Time Source Procedure Growth Status 09/07/17 00:50 Stool Stool Stool Occult Blood (NANDINI) - Final HEMOCCULT NEGATIVE Complete 09/03/17 15:30 Urine Catheterized Urine Urine Culture - Final NO GROWTH IN 48 HOURS. Complete Vitals/IOs Vital Signs Date Time Temp Pulse Resp B/P (MAP) Pulse Ox O2 Delivery O2 Flow Rate FiO2 09/17/17 18:07 98.5 72 18 149/57 (87) 95 Assessment & Plan Problem List: (1) Severe recurrent major depression without psychotic features ICD Codes: F33.2 - Major depressive disorder, recurrent severe without psychotic features Assessment & Plan Patient at this time continues with severe depression, helpless and hopeless along with thoughts of not wanting to be alive. Patient will be increased slightly more continues to be isolative with anhedonia and poor motivation to participate in ADLs or treatment. Continue current treatment. Patient presented to mental health Court for petition for ECT. Patient will then be transferred to receiving facility to commence ECT treatments. Continue monitoring behavior continue to encourage patient maintain personal hygiene as well as participation in groups and activities. Continue to assist patient with ADLs and encourage increase and when necessary nutritional intake. Continue recommendations as per primary medical team. Discharge planning in progress Justification for Cont. Inpt. At risk for further decompensation at lower level of care Discharge Planning Patient to be transferred to ECT receiving facility once petition is granted by mental health Court. Vamshi Hatch MD Sep 18, 2017 12:56
[2017-09-18 18:03] VITALS: BP 120/56; PULSE 78; RESP 16; TEMP 97.1; O2SAT 94
[2017-09-18 18:08] VITALS: BP 140/70
[2017-09-18] MEDS: traZODone HCL 100 MG TAB PO SCH (20:38)
[2017-09-18] MEDS: PRIMIDONE 50 MG TAB PO SCH (20:38)
[2017-09-18] MEDS: MIRTAZAPINE 15 MG TAB PO SCH (20:38)
[2017-09-18] MEDS: ALPRAZolam 0.5 MG TAB PO SCH (20:39)
[2017-09-19 05:28] VITALS: BP 117/54; PULSE 71; RESP 15; TEMP 97.4; O2SAT 96
[2017-09-19] MEDS: LEVOTHYROXINE SODIUM 150 MCG TAB PO SCH (05:47)
[2017-09-19] MEDS: cloNIDine HCL 0.1 MG TAB PO SCH ×3 (09:00→19:49)
[2017-09-19] MEDS: amLODIPine BESYLATE 5 MG TAB PO SCH (09:00)
[2017-09-19] MEDS: LABETALOL HCL 200 MG TAB PO SCH ×2 (09:37→19:48)
[2017-09-19] MEDS: LORATADINE 10 MG TAB PO SCH (09:38)
[2017-09-19] MEDS: PARoxetine HCL 20 MG TAB PO SCH (09:38)
[2017-09-19] MEDS: ATORVASTATIN 20 MG TAB PO SCH (09:38)
[2017-09-19] MEDS: ALPRAZolam 0.25 MG TAB PO SCH (09:39)
--- NOTE | 2017-09-19 13:05 | HHI.DS ---
Psychiatry Discharge Summary Inpatient Psychiatric care?: Yes Advance Directive: No Reason Not Provided: Has none Mental Health AdvanceDirective: No Health Care Proxy: No Admission Admission Date Sep 03, 2017 at 18:44 Admission Diagnosis: (1) Severe recurrent major depression without psychotic features ICD Code: F33.2 - Major depressive disorder, recurrent severe without psychotic features Brief History 72-year-old female with history of multiple medical issues including thyroid disease, arthritis, chronic pain, panic attacks, etc. being Lew acted by this physician for inability to care for self. Patient is mostly nonverbal and has great difficulty with concentration and memory. Therefore her provided most of the history. The patient has been treated with Xanax and Lorcet for many many years, due to panic attacks and chronic pain. Between her doctor and herself, the patient has attempted to wean off the benzodiazepine and narcotic medications. reports this may have been well intentioned but it has caused a significant spiral downward in the patient's functionality. She now experiences depressed mood, anhedonia, diminished energy, social withdrawal, loss of appetite, sleep disturbance, poverty of speech, increased anxiety, and noncompliance with her nonpsychiatric medications. Patient has been diagnosed with urinary tract infection and has not been drinking fluids at home or taking her Synthroid. Tobacco Use In Past 30 Days: No Tobacco Past 30 Days Alcohol Use: Never Hospital Course Patient is a 72-year-old woman, , domicile with , unemployed, past psychiatric history of anxiety disorder, bipolar disorder, previous psychiatric admissions, no prior suicide attempts with a past medical history significant for hypothyroidism, GERD, prior CVAs in 2011 2013, hypertension, seizure disorder was brought in by has been due to worsening depression, not eating, noncompliance with medications, which recently visits with primary care physician referral to subspecialties but did not want to wait in by her to the hospital. Patient was continued on paroxetine and titrated up to 50mg PO daily, along with mirtazapine 45 mg at bedtime which she tolerated well with minimal effect. Patient had difficulty with swallowing which she had a consult was placed for evaluation in patient had an EGD performed with dilatation of a small stricture found during the study. Patient continued on her. Diet continued with poor nutritional intake despite the procedure. Patient continued to have poor by mouth intake with poor participation with physical therapy and poor motivation to engage in care. Patient continued to endorse feeling depressed with continued suicidal ideations during hospitalization. Patient was adherent to medication regimen and recommendations as per primary medical team limited participation with poor response and not much improvement despite of aggressive antidepressant/daily psychotherapy. The patient continued to be very melancholic , with marked neurovegetative symptoms of depression including poor sleep, poor appetite, weight loss, psychomotor retardation, flat affect, decreased level of energy, lack of motivation and continuous expressed desire to . The patient has been rapidly deteriorating physically, continues to have suicidal thoughts, her depressive symptoms have been refractory to antidepressants. Petition [facility] for electrical was a therapy was carried out and granted through legal proceedings. Patient was transferred to receive facility which patient will that receive electrical physical therapy for continued management of symptoms. Patient and family agree with plan. Results Blood Pressure 117 / 54 Vital Signs Date Time Temp Pulse Resp B/P (MAP) Pulse Ox O2 Delivery O2 Flow Rate FiO2 09/19/17 05:28 97.4 71 15 117/54 (75) 96 Laboratory Tests Test 09/19/17 12:20 Laboratory Results Test 09/04/17 09:10 Cholesterol Level 213 MG/DL (120-200) HDL Cholesterol 54.9 MG/DL (40.0-60.0) Hemoglobin A1c 4.6 % (4.3-6.0) LDL Cholesterol 146 MG/DL (0-99) Triglycerides Level 59 MG/DL (42-150) Summary of Procedures EGD performed with reported as follows: 1. There was a short stricture in the distal esophagus; biopsy was performed; The stricture was dilated using a 15mm (45Fr) savary dilator over guidewire 2. There was erythematous gastritis in the gastric antrum; biopsy was performed 3. Normal duodenal mucosa 4. Retroflexed views revealed no abnormalities Imaging Last Impressions Brain MRI 09/04/17 0000 Signed Impressions: Service Date/Time: Monday, September 04, 2017 17:45 - CONCLUSION: 1. No acute intracranial abnormality. 2. Small chronic bilateral basal ganglia lacunar infarctions. Enrique Obrien Jr., MD Head CT 09/03/17 0000 Signed Impressions: Service Date/Time: Sunday, September 03, 2017 15:01 - CONCLUSION: Subcentimeter area of low density at the knee of the internal capsule left basal ganglia which may represent an interim lacunar infarct. Otherwise negative Ilia Bender MD Pending results at discharge: No Medications # of Antipsychotic meds at D/C: 0 Approp Antipsych med options 1 - Minimum of three failed multiple trials of monotherapy. 2 - Documented plan to taper to monotherapy due to previous use of multiple meds OR cross-taper in progress at D/C. 3 - Documentation of augmentation of Clozapine. 4 - Justification other than those listed in allowable values 1-3, document here : Discharge Discharge Date: Sep 20, 2017 Discharge Diagnosis: (1) Severe recurrent major depression without psychotic features ICD Code: F33.2 - Major depressive disorder, recurrent severe without psychotic features Pt Condition on Discharge: Stable Discharge Disposition: Disch to Another Hospital Discharge Instructions Diet Instructions: Heart Healthy Diet Activities you can perform: Regular-No Restrictions Discharge Time > 30 minutes Mental Status Examination Appearance: Disheveled Consciousness: Alert Orientation: Person, Place, Date/Time Motor Activity: Abnormal gait Speech: Hesitant, Slow, Other (soft) Language: Other Fund of Knowledge: Inadequate Attention and Concentration: Inadequate Memory: Impaired Mood: Sad (dysphoric) Affect: Sad, Flat Thought Process & Associations: Intact, Linear Thought Content: Preoccupations (about dying), Other Hallucination Type: None Delusion Type: None Suicidal Ideation: No (having thoughts of dying) Suicidal Plan: No Suicidal Intention: No Homicidal Ideation: No Homicidal Plan: No Homicidal Intention: No Insight: Poor Judgment: Poor Discharge/Advance Care Plan Health Problems: (1) Severe recurrent major depression without psychotic features Goals to promote your health * To prevent worsening of your condition and complications * To maintain your health at the optimal level Directions to meet your goals Take your medications as prescribed Follow your dietary instruction Follow activity as directed Keep your appointments as scheduled Take your immunizations and boosters as scheduled If your symptoms worsen call your PCP, if no PCP go to Urgent Care Center or Emergency Room For 11/03 questions related to your inpatient stay or results of tests pending at discharge, please contact Dr. Vamshi Hatch at Smoking is Dangerous to Your Health. Avoid second hand smoking Vamshi Hatch MD Sep 19, 2017 13:05
[2017-09-19] MEDS: MUPIROCIN 2% OINT 1 APPLIC/GM SYR EACH NARE SCH ×2 (14:45→19:48)
--- NOTE | 2017-09-19 15:17 | HHI.PYPN ---
Subjective Remarks Patient seen for follow-up, chart review. Patient presented to mental health court today for petition for electroconvulsive therapy which was granted. Patient expressed understanding and agreed to continue with this treatment which will be held at another facility. Upon presenting case transfer, patient had nasal MRSA screen positive receiving facility required patient to be on Bactroban ointment for 24 hours prior to her transfer over to this facility. Patient at this time continues report feeling depressed, helpless and hopeless, with anhedonia and with continued thoughts of dying. Review of Systems Except as stated in HPI: all other systems reviewed are Neg Mental Status Examination Appearance: Disheveled Consciousness: Alert Orientation: Person, Place, Date/Time Motor Activity: Abnormal gait Speech: Hesitant, Slow, Other (soft) Language: Other Fund of Knowledge: Inadequate Attention and Concentration: Inadequate Memory: Impaired Mood: Sad (dysphoric) Affect: Sad, Flat Thought Process & Associations: Intact, Linear Thought Content: Preoccupations (about dying), Other Hallucination Type: None Delusion Type: None Suicidal Ideation: Yes (continue thoughts of dying) Suicidal Plan: No Suicidal Intention: No Homicidal Ideation: No Homicidal Plan: No Homicidal Intention: No Insight: Poor Judgment: Poor Results Labs Labs reviewed Test 09/19/17 12:20 Nasal Screen MRSA (PCR) MRSA DETECTED Date/Time Source Procedure Growth Status 09/07/17 00:50 Stool Stool Stool Occult Blood (NANDINI) - Final HEMOCCULT NEGATIVE Complete 09/03/17 15:30 Urine Catheterized Urine Urine Culture - Final NO GROWTH IN 48 HOURS. Complete Vitals/IOs Vital Signs Date Time Temp Pulse Resp B/P (MAP) Pulse Ox O2 Delivery O2 Flow Rate FiO2 09/19/17 05:28 97.4 71 15 117/54 (75) 96 Intake and Output 09/19/17 09/19/17 09/20/17 08:00 16:00 00:00 Intake Total 240 ml 100 ml Balance 240 ml 100 ml Assessment & Plan Problem List: (1) Severe recurrent major depression without psychotic features ICD Codes: F33.2 - Major depressive disorder, recurrent severe without psychotic features Assessment & Plan Patient at this time continues to require ECT treatments due to refractory response to multiple antidepressant medications. ECT was granted to mental health court petition. Patient started on Bactroban ointment twice a day as nasal MRSA screen was positive and receiving facility requires patient to be on this medication prior to transfer. Therefore transfer will be deferred for tomorrow was patient has had 24 hours of this medication. Continue current treatment. Continue to monitor mood and behavior. Discharge planning in progress Justification for Cont. Inpt. At risk for decompensation at lower level of care Discharge Planning Patient be transferred to receiving facility for ECT treatments tomorrow. Vamshi Hatch MD Sep 19, 2017 15:17
[2017-09-19] MEDS ORDERED: LABE200T2 PO (17:28)
[2017-09-19] MEDS ORDERED: ALPR.5 PO (17:28)
[2017-09-19] MEDS ORDERED: MIRT45TA PO (17:28)
[2017-09-19] MEDS ORDERED: BACTOIN EACH NARE (17:28)
[2017-09-19] MEDS ORDERED: ALPR.25 PO (17:28)
[2017-09-19] MEDS ORDERED: ATOR20TA15 PO (17:28)
[2017-09-19] MEDS ORDERED: PARO20TA2 PO (17:28)
[2017-09-19] MEDS ORDERED: TRAZ50TA12 PO (17:28)
[2017-09-19 18:24] VITALS: BP 112/54; PULSE 82; RESP 16; TEMP 98.2; O2SAT 95
[2017-09-19] MEDS: ALPRAZolam 0.5 MG TAB PO SCH (19:47)
[2017-09-19] MEDS: traZODone HCL 100 MG TAB PO SCH (19:49)
[2017-09-19] MEDS: PRIMIDONE 50 MG TAB PO SCH (19:49)
[2017-09-19] MEDS: MIRTAZAPINE 15 MG TAB PO SCH (19:49)
[2017-09-20] MEDS: LEVOTHYROXINE SODIUM 150 MCG TAB PO SCH (05:21)
[2017-09-20 05:56] VITALS: BP 148/65; PULSE 78; RESP 18; TEMP 97.5; O2SAT 96
[2017-09-20] MEDS: ACETAMINOPHEN/HYDROcodone 325 MG/5 MG TAB PO PRN (06:13)
[2017-09-20] MEDS: ATORVASTATIN 20 MG TAB PO SCH (08:38)
[2017-09-20] MEDS: MUPIROCIN 2% OINT 1 APPLIC/GM SYR EACH NARE SCH (08:38)
[2017-09-20] MEDS: LABETALOL HCL 200 MG TAB PO SCH (08:39)
[2017-09-20] MEDS: cloNIDine HCL 0.1 MG TAB PO SCH (08:39)
[2017-09-20] MEDS: PARoxetine HCL 20 MG TAB PO SCH (08:39)
[2017-09-20] MEDS: amLODIPine BESYLATE 5 MG TAB PO SCH (08:39)
[2017-09-20] MEDS: ALPRAZolam 0.25 MG TAB PO SCH (08:39)
[2017-09-20] MEDS: LORATADINE 10 MG TAB PO SCH (08:39)
== END 2017-09-20 10:10 | disposition short-term general hospital (02) | DRG 885 ==
LOC: NEPE 11:13 → NEDA 18:44 → H4EA 20:40 → H250 09-12 18:51
PROVIDERS: ADMIT Student in an Organized Health Care Education/Training Program; ATTEND Student in an Organized Health Care Education/Training Program
PROC: 0D738ZZ Dilation of Lower Esophagus, Via Natural or Artificial Opening Endoscopic (ICD-10-PCS; 2017-09-09)
PROC: 0DB68ZX Excision of Stomach, Via Natural or Artificial Opening Endoscopic, Diagnostic (ICD-10-PCS; 2017-09-09)
PROC: 0DB38ZX Excision of Lower Esophagus, Via Natural or Artificial Opening Endoscopic, Diagnostic (ICD-10-PCS; principal; 2017-09-09 15:00)
DX: F33.2 Major depressive disorder, recurrent severe without psychotic features (principal); G93.40 Encephalopathy, unspecified; G40.909 Epilepsy, unspecified, not intractable, without status epilepticus; K22.2 Esophageal obstruction; D63.8 Anemia in other chronic diseases classified elsewhere; R13.10 Dysphagia, unspecified; F13.239 Sedative, hypnotic or anxiolytic dependence with withdrawal, unspecified; Z91.14 Patient's other noncompliance with medication regimen; E03.9 Hypothyroidism, unspecified; F41.0 Panic disorder [episodic paroxysmal anxiety]; G89.29 Other chronic pain; M19.90 Unspecified osteoarthritis, unspecified site; Z81.8 Family history of other mental and behavioral disorders; I10 Essential (primary) hypertension; F41.8 Other specified anxiety disorders; Z86.73 Personal history of transient ischemic attack (TIA), and cerebral infarction without residual deficits; E87.6 Hypokalemia; G47.00 Insomnia, unspecified; K29.70 Gastritis, unspecified, without bleeding; K21.9 Gastro-esophageal reflux disease without esophagitis; R82.90 Unspecified abnormal findings in urine; Z22.322 Carrier or suspected carrier of Methicillin resistant Staphylococcus aureus; R26.9 Unspecified abnormalities of gait and mobility; Z87.820 Personal history of traumatic brain injury
CPT/HCPCS: 70450; 70551; 80048; 80053; 80061; 80076; 81001; 82140; 82272; 82306; 82550; 82607; 82728; 83036; 83540; 83550; 83690; 83735; 84100; 84443; 85007; 85025; 85027; 85610; 85730; 87086; 87641; 88305; 88312; 93005; 96360; C1769; J1650; J7030; J7120